=== PATIENT | female | born 1990 | race Caucasian/White ===

== ENCOUNTER 2016-12-31 15:15 | Emergency (ER) | payer MEDICAID ==
[2016-12-31] MEDS ORDERED: IBUPROFEN 800 MG TABLET PO ONE (16:04)
--- NOTE | 2016-12-31 16:08 | ER Document Report ---
ED Medical Screen (RME) - General Stated Complaint: FEVER/BODY PAIN Time seen by provider: 16:03 Mode of Arrival: Ambulatory Information source: Patient Notes: 26-year-old female c/o severe myalgias fever to 103, started with head congestion 2 days ago. lungs are clear at triage and vital signs are stable. No dysuria, frequency or urgency. TRAVEL OUTSIDE OF THE [place] IN LAST 30 DAYS: No - Related Data Allergies/Adverse Reactions: No Known Allergies Allergy (Verified 12/31/16 16:03) Past Medical History - Past Medical History Cardiac Medical History: Denies: Hx Heart Attack, Hx Hypertension Pulmonary Medical History: Reports: Hx Pneumonia Denies: Hx Asthma Neurological Medical History: Reports: Hx Migraine. Denies: Hx Cerebrovascular Accident, Hx Seizures Renal/ Medical History: Reports: Hx Ovarian Cysts GI Medical History: Reports: Hx Gastroesophageal Reflux Disease. Denies: Hx Hepatitis, Hx Hiatal Hernia, Hx Ulcer Psychiatric Medical History: Reports: Hx Anxiety Infectious Medical History: Denies: Hx Hepatitis Past Surgical History: Reports: Hx Tubal Ligation. Denies: Hx Mastectomy, Hx Open Heart Surgery, Hx Pacemaker - Immunizations Immunizations up to date: No Hx Diphtheria, Pertussis, Tetanus Vaccination: Yes
--- NOTE | 2016-12-31 17:49 | ER Document Report ---
HPI - HPI Patient complains to provider of: head congestion,cough Onset: Yesterday Onset/Duration: Gradual Quality of pain: Achy Pain Level: 3 Context: 26 yo smoker female c/o head congestion and cough since yesterday. Hurts when she coughs. No fever. Associated Symptoms: None Exacerbated by: Denies Relieved by: Denies Similar symptoms previously: Yes Recently seen / treated by doctor: No - ROS ROS below otherwise negative: Yes Systems Reviewed and Negative: Yes All other systems reviewed and negative - REPRODUCTIVE LMP: 12/17/16 Reproductive: DENIES: : - DERM Skin Color: Normal Past Medical History - General Information source: Patient - Social History Smoking Status: Current Every Day Smoker Chew tobacco use (# tins/day): No Frequency of alcohol use: Occasional Drug Abuse: None Family History: Reviewed & Not Pertinent Patient has suicidal ideation: No Patient has homicidal ideation: No Pulmonary Medical History: Reports: Hx Pneumonia Neurological Medical History: Reports: Hx Migraine Renal/ Medical History: Reports: Hx Ovarian Cysts GI Medical History: Reports: Hx Gastroesophageal Reflux Disease Psychiatric Medical History: Reports: Hx Anxiety Surgical Hx: Negative Past Surgical History: Reports: Hx Tubal Ligation. Denies: Hx Mastectomy, Hx Open Heart Surgery, Hx Pacemaker - Immunizations Immunizations up to date: No Hx Diphtheria, Pertussis, Tetanus Vaccination: Yes Hx Pneumococcal Vaccination: 11/23/00 Vertical Provider Document - CONSTITUTIONAL Agree With Documented VS: Yes Exam Limitations: No Limitations General Appearance: No Apparent Distress - INFECTION CONTROL TRAVEL OUTSIDE OF THE [place] IN LAST 30 DAYS: No - HEENT HEENT: Normocephalic, Pharyngeal Erythema. negative: Conjuctival Injection, Tympanic Membrane Red, Tympanic Membrane Bulging - NECK Neck: Supple. negative: Lymphadenopathy-Left, Lymphadenopathy-Right - RESPIRATORY Respiratory: Breath Sounds Normal, No Respiratory Distress O2 Sat by Pulse Oximetry: 98 - CARDIOVASCULAR Cardiovascular: Regular Rate, Regular Rhythm - GI/ABDOMEN Gastrointestinal: Abdomen Soft, Abdomen Non-Tender - MUSCULOSKELETAL/EXTREMETIES Musculoskeletal/Extremeties: GALINA RAY - NEURO Level of Consciousness: Awake, Alert - DERM Integumentary: Warm, Dry Course - Re-evaluation Re-evalutation: 12/31/16 17:55 Influenza is negative and patient does not want a chest x-ray. - Vital Signs Vital signs: Temp Pulse Resp BP Pulse Ox 98.8 F 100 16 109/70 98 12/31/16 16:02 12/31/16 16:02 12/31/16 16:02 12/31/16 16:02 12/31/16 16:02 Discharge - Discharge Clinical Impression: Upper respiratory infection Qualifiers: URI type: unspecified viral URI Qualified Code(s): J06.9 - Acute upper respiratory infection, unspecified Condition: Good Disposition: HOME, SELF-CARE Instructions: Acetaminophen, Fever ([facility]), Upper Respiratory Illness ([facility]), Anti -Inflammatory Medication ([facility]) Additional Instructions: plenty of fluids rest to er if worse Prescriptions: Ibuprofen [Motrin 600 mg Tablet] 600 mg PO Q8HP PRN #30 tablet PRN Reason: Referrals: MAUDE BOYCE MD [Primary Care Provider] - Follow up as needed
[2016-12-31 18:24] VITALS: BP 110/78
== END 2016-12-31 18:17 | disposition home or self-care (01) ==
LOC: ER 15:15
DX: J06.9 Acute upper respiratory infection, unspecified (principal); B97.89 Other viral agents as the cause of diseases classified elsewhere; R05 Cough; F17.200 Nicotine dependence, unspecified, uncomplicated; Z87.01 Personal history of pneumonia (recurrent)
CPT/HCPCS: 99283; 87804; J3490

== ENCOUNTER 2017-04-04 17:26 | Emergency (ER) | payer MEDICAID, OTHER ==
[2017-04-04 17:39] VITALS: BP 113/65
--- NOTE | 2017-04-04 20:33 | ER Document Report ---
ED General - General Chief Complaint: Chest Pain Stated Complaint: CHEST PAIN Time Seen by Provider: 04/04/17 18:45 Mode of Arrival: Ambulatory Information source: Patient Notes: 27-year-old female presents with complaints of intermittent sharp chest pain that lasts about 5-10 minutes associated with tingling in her fingers and of her lips. Patient denies any shortness of breath, denies any chest pain otherwise. Patient denies any DVT or PE risk factors TRAVEL OUTSIDE OF THE [place] IN LAST 30 DAYS: No - HPI Onset: Just prior to arrival Onset/Duration: Sudden Quality of pain: Sharp Severity: Mild Pain Level: 1 Associated symptoms: Chest pain Exacerbated by: Denies Relieved by: Denies Similar symptoms previously: No Recently seen / treated by doctor: No - Related Data Allergies/Adverse Reactions: No Known Allergies Allergy (Verified 04/04/17 17:36) Past Medical History - Social History Smoking Status: Current Every Day Smoker Cigarette use (# per day): Yes Chew tobacco use (# tins/day): No Smoking Education Provided: No Frequency of alcohol use: Occasional Drug Abuse: None Family History: Reviewed & Not Pertinent Patient has suicidal ideation: No Patient has homicidal ideation: No - Past Medical History Cardiac Medical History: Denies: Hx Heart Attack, Hx Hypertension Pulmonary Medical History: Reports: Hx Pneumonia Denies: Hx Asthma Neurological Medical History: Reports: Hx Migraine. Denies: Hx Cerebrovascular Accident, Hx Seizures Renal/ Medical History: Reports: Hx Ovarian Cysts. Denies: Hx Peritoneal Dialysis GI Medical History: Reports: Hx Gastroesophageal Reflux Disease. Denies: Hx Hepatitis, Hx Hiatal Hernia, Hx Ulcer Psychiatric Medical History: Reports: Hx Anxiety Infectious Medical History: Denies: Hx Hepatitis Past Surgical History: Reports: Hx Tubal Ligation. Denies: Hx Mastectomy, Hx Open Heart Surgery, Hx Pacemaker - Immunizations Immunizations up to date: No Hx Diphtheria, Pertussis, Tetanus Vaccination: Yes Hx Pneumococcal Vaccination: 11/23/00 Review of Systems - Review of Systems Notes: PHYSICAL EXAMINATION: GENERAL: Well-appearing, well-nourished and in no acute distress. HEAD: Atraumatic, normocephalic. EYES: Pupils equal round and reactive to light, extraocular movements intact, conjunctiva are normal. ENT: Nares patent, oropharynx clear without exudates. Moist mucous membranes. NECK: Normal range of motion, supple without lymphadenopathy LUNGS: Breath sounds clear to auscultation bilaterally and equal. No wheezes rales or rhonchi. HEART: Regular rate and rhythm without murmurs ABDOMEN: Soft, nontender, nondistended abdomen. No guarding, no rebound. No masses appreciated. Female : deferred Musculoskeletal: Normal range of motion, no pitting or edema. No cyanosis. NEUROLOGICAL: Cranial nerves grossly intact. Normal speech, normal gait. Normal sensory, motor exams PSYCH: Normal mood, normal affect. SKIN: Warm, Dry, normal turgor, no rashes or lesions noted. Physical Exam - Vital signs Vitals: Temp Pulse Resp BP Pulse Ox 97.9 F 97 16 113/65 99 04/04/17 17:37 04/04/17 17:37 04/04/17 17:37 04/04/17 17:37 04/04/17 17:37 Course - Re-evaluation Re-evalutation: 04/04/17 20:34 Patient instructed on risks and benefits of medications prescribed. Denies any concerns regarding such. Vital signs are stable Patient's presentation is consistent with a panic attack with tingling sensations in the sharp chest pain. Patient denies any DVT or PE risk factors. Therefore I believe she is stable for discharge. EKG chest x-ray were negative. After performing a Medical Screening Examination, I estimate there is LOW risk for RUPTURED ESOPHAGUS, PNEUMOTHORAX, PULMONARY EMBOLISM, ACUTE CORONARY SYNDROME, OR THORACIC AORTIC DISSECTION, thus I consider the discharge disposition reasonable. I have reevaluated this patient multiple times and no significant life threatening changes are noted. The patient and I have discussed the diagnosis and risks, and we agree with discharging home with close follow-up. We also discussed returning to the Emergency Department immediately if new or worsening symptoms occur. We have discussed the symptoms which are most concerning (e.g., bloody sputum, worsening pain or shortness of breath) that necessitate immediate return. 04/04/17 20:36 - Vital Signs Vital signs: Temp Pulse Resp BP Pulse Ox 97.9 F 97 16 113/65 99 04/04/17 17:37 04/04/17 17:37 04/04/17 17:37 04/04/17 17:37 04/04/17 17:37 Discharge - Discharge Clinical Impression: Anxiety Chest pain Qualifiers: Chest pain type: unspecified Qualified Code(s): R07.9 - Chest pain, unspecified Condition: Stable Disposition: HOME, SELF-CARE Instructions: Chest Pain of Unclear Cause ([facility]), Anxiety ([facility]) Prescriptions: Lorazepam [Ativan 0.5 mg Tablet] 0.5 mg PO Q4 PRN #10 tab PRN Reason: Referrals: OCTAVIA SILVA MD [NO LOCAL MD] - Follow up tomorrow
--- NOTE | 2017-04-05 11:46 | EKG REPORT ---
SEVERITY:- NORMAL ECG - SINUS RHYTHM : Confirmed by: David Pearce 05-Apr-2017 11:44:12
== END 2017-04-04 20:35 | disposition home or self-care (01) ==
LOC: ER 17:26
DX: F41.9 Anxiety disorder, unspecified (principal); R07.9 Chest pain, unspecified; R22.0 Localized swelling, mass and lump, head; F17.210 Nicotine dependence, cigarettes, uncomplicated
CPT/HCPCS: 71020; 93005; 93010; 99285

== ENCOUNTER 2017-05-22 22:26 | Emergency (ER) | payer MEDICAID, OTHER ==
[2017-05-23 00:08] LABS: ABSOLUTE BASOPHILS # (AUTO) 0.1 10^3/uL (0.0-0.2); ABSOLUTE EOSINOPHILS # (AUTO) 0.2 10^3/uL (0.0-0.6); ABSOLUTE LYMPHOCYTES (AUTO) 3.1 10^3/uL (0.5-4.7); ABSOLUTE NEUT (AUTO) 5.6 10^3/uL (1.7-8.2); BASOPHILS % (AUTO) 1.1 % (0-2); EOSINOPHILS % (AUTO) 2.5 % (0-6); HEMATOCRIT 39.4 % (36.0-47.0); HEMOGLOBIN 13.2 g/dL (12.0-15.5); HGB HCT DIFFERENCE 0.2; LYMPHOCYTES % (AUTO) 30.8 % (13-45); MEAN CORPUSCULAR HEMOGLOBIN 28.4 pg (27.0-33.4); MEAN CORPUSCULAR HGB CONC 33.4 g/dL (32.0-36.0); MEAN CORPUSCULAR VOLUME 85 fl (80-97); MONOCYTES % (AUTO) 9.9 % (3-13); RED BLOOD COUNT 4.63 10^6/uL (3.72-5.28); RED CELL DISTRIBUTION WIDTH 12.7 % (11.5-14.0); SEGMENTED NEUTROPHILS % (AUTO) 55.7 % (42-78)
[2017-05-23] MEDS ORDERED: MORPHINE SULFATE 10 MG/ML INJ IV ONE ×3 (02:15→10:12)
[2017-05-23] MEDS ORDERED: ONDANSETRON HCL INJ/PF 4 MG/2 ML SDV IV ONE ×2 (02:15→10:12)
--- NOTE | 2017-05-23 02:17 | ER Document Report ---
ED GI/ - General Chief Complaint: Vaginal Bleeding Stated Complaint: VAGINAL PAIN Time Seen by Provider: 05/23/17 02:02 Notes: Patient is a 27-year-old female who comes emergency department for chief complaint of lower abdominal pain worse on the left side and vaginal bleeding with at first spotting and then passing of clots starting just before arrival tonight. Patient came by EMS. She states that she had a partial hysterectomy on 05/07/17 at [facility] by Dr. Kathleen Garcia, she states that her symptoms had actually completely resolved before today. She denies fever or chills, nausea or vomiting, dizziness. She denies any current daily medications. TRAVEL OUTSIDE OF THE [place] IN LAST 30 DAYS: No - Related Data Allergies/Adverse Reactions: No Known Allergies Allergy (Verified 04/04/17 17:36) Past Medical History - General Information source: Patient - Social History Smoking Status: Never Smoker Drug Abuse: None Lives with: Family Family History: Reviewed & Not Pertinent Patient has suicidal ideation: No Patient has homicidal ideation: No - Past Medical History Cardiac Medical History: Denies: Hx Heart Attack, Hx Hypertension Pulmonary Medical History: Reports: Hx Pneumonia Denies: Hx Asthma Neurological Medical History: Reports: Hx Migraine. Denies: Hx Cerebrovascular Accident, Hx Seizures Renal/ Medical History: Reports: Hx Ovarian Cysts. Denies: Hx Peritoneal Dialysis GI Medical History: Reports: Hx Gastroesophageal Reflux Disease. Denies: Hx Hepatitis, Hx Hiatal Hernia, Hx Ulcer Psychiatric Medical History: Reports: Hx Anxiety Infectious Medical History: Denies: Hx Hepatitis Past Surgical History: Reports: Hx Hysterectomy, Hx Tubal Ligation. Denies: Hx Mastectomy, Hx Open Heart Surgery, Hx Pacemaker - Immunizations Immunizations up to date: No Hx Diphtheria, Pertussis, Tetanus Vaccination: Yes Hx Pneumococcal Vaccination: 11/23/00 Review of Systems - Review of Systems Constitutional: No symptoms reported EENT: No symptoms reported Cardiovascular: No symptoms reported Respiratory: No symptoms reported Gastrointestinal: No symptoms reported Genitourinary: No symptoms reported Female Genitourinary: See HPI Musculoskeletal: No symptoms reported Skin: No symptoms reported Hematologic/Lymphatic: No symptoms reported Neurological/Psychological: No symptoms reported Physical Exam - Vital signs Vitals: Temp Pulse BP Pulse Ox 97.8 F 78 106/76 97 05/22/17 23:08 05/22/17 23:08 05/22/17 23:08 05/22/17 23:08 Interpretation: Normal - General General appearance: Alert, Anxious In distress: None - HEENT Head: Normocephalic, Atraumatic Eyes: Normal Conjunctiva: Normal Extraocular movements intact: Yes Eyelashes: Normal Pupils: PERRL Mouth/Lips: Normal Mucous membranes: Normal Pharynx: Normal Neck: Normal - Respiratory Respiratory status: No respiratory distress Chest status: Nontender Breath sounds: Normal Chest palpation: Normal - Cardiovascular Rhythm: Regular Heart sounds: Normal auscultation Murmur: No - Abdominal Inspection: Healed incision - Several healed incisions over the abdomen, good healing noted, no erythema, tenderness, or evidence of infection Distension: No distension Bowel sounds: Normal Tenderness: Tender - Generalized lower abdominal tenderness which is mild Organomegaly: No organomegaly - Genitourinary Vaginal bleeding: Mild - Minimal vaginal bleeding noted currently, some clots noted vaginally, there is a moderate amount of blood in patient's diaper with clots in the diaper as well. This was examined with Sally RENTERIA at bedside, straight catheter performed and shows no blood, no speculum was used to perform the examination - Back Back: Normal, Nontender - Extremities General upper extremity: Normal inspection, Nontender, Normal color, Normal ROM , Normal temperature General lower extremity: Normal inspection, Nontender, Normal color, Normal ROM , Normal temperature, Normal weight bearing. No: Jennifer's sign - Neurological Neuro grossly intact: Yes Cognition: Normal Orientation: AAOx4 [place] Coma Scale Eye Opening: Spontaneous [place] Coma Scale Verbal: Oriented [place] Coma Scale Motor: Obeys Commands [place] Coma Scale Total: 15 Speech: Normal Motor strength normal: LUE, RUE, LLE, RLE Sensory: Normal - Psychological Associated symptoms: Normal affect, Normal mood - Skin Skin Temperature: Warm Skin Moisture: Dry Skin Color: Normal Course - Re-evaluation Re-evalutation: Patient with some lower abdominal tenderness, evidence of significant vaginal bleeding on examination, straight catheter shows no bladder hemorrhage, CBC shows no anemia. No fever, leukocytosis, or tachycardia. Discussed with Dr. Nichols. CAT scan will be performed. Scan showing possible abnormality of the cuff but no other abnormalities noted. 05/23/17 05:30 Spoke with AVIVA Xie, she recommends patient be transferred to the [facility] ED for evaluation/repair of the cuff by OBGYN. Patient is in full agreement with this. 05/23/17 07:15 Patient was introduced to Marimar Gallego PA-C at bedside, she was given additional pain medications. Vital signs unremarkable at this time. Still awaiting transport. - Vital Signs Vital signs: Temp Pulse Resp BP Pulse Ox 97.7 F 56 L 15 103/52 L 99 05/23/17 06:42 05/23/17 06:42 05/23/17 06:42 05/23/17 06:42 05/23/17 06:42 - Laboratory Result Diagrams: 05/22/17 23:52 05/22/17 23:52 Laboratory results interpreted by me: 05/22/17 05/23/17 23:52 03:32 Carbon Dioxide 21 L Urine Protein 30 H Urine Ketones 20 H Discharge - Discharge Clinical Impression: Postoperative vaginal bleeding Condition: Stable Disposition: [facility]
[2017-05-23 03:49] LABS: APPEARANCE,URINE SLIGHTLY-CLOUDY; BILIRUBIN,URINE NEGATIVE (NEGATIVE); GLUCOSE, URINE NEGATIVE (NEGATIVE); KETONES,URINE 20 mg/dL (NEGATIVE); LEUKOCYTE ESTERASE,URINE NEGATIVE (NEGATIVE); NITRITE,URINE NEGATIVE (NEGATIVE); PROTEIN,URINE 30 mg/dL (NEGATIVE); URINE SPECIFIC GRAVITY 1.025; UROBILINOGEN,URINE NEGATIVE mg/dL (<2.0)
[2017-05-23 03:50] LABS: ALANINE AMINOTRANSFERASE 25 U/L (9-52); ALBUMIN 4.1 g/dL (3.5-5.0); ALKALINE PHOSPHATASE 67 U/L (38-126); ANION GAP 14 (5-19); ASPARTATE AMINO TRANSFERASE 15 U/L (14-36); BILIRUBIN,DIRECT 0.3 mg/dL (0.0-0.4); BILIRUBIN,TOTAL 0.3 mg/dL (0.2-1.3); BLOOD UREA NITROGEN 9 mg/dL (7-20); CALCIUM 9.6 mg/dL (8.4-10.2); CARBON DIOXIDE 21 mmol/L (22-30); CHLORIDE 107 mmol/L (98-107); CREATININE RESULT 0.69 mg/dL (0.52-1.25); GLUCOSE 85 mg/dL (75-110); POTASSIUM 3.9 mmol/L (3.6-5.0); SODIUM 141.5 mmol/L (137-145); TOTAL PROTEIN 7.4 g/dL (6.3-8.2)
--- NOTE | 2017-05-23 04:28 | RADIOLOGY REPORT (SQ) ---
EXAM DESCRIPTION: CT ABD/PELVIS WITH IV ONLY COMPLETED DATE/TIME: 05/23/2017 3:56 am REASON FOR STUDY: post op abd/pelvic pain, vaginal bleeding COMPARISON: None. TECHNIQUE: CT scan of the abdomen and pelvis performed using helical scanning technique with dynamic intravenous contrast injection. No oral contrast. Images reviewed with lung, soft tissue, and bone windows. Reconstructed coronal and sagittal MPR images reviewed. Delayed images for evaluation of the urinary system also acquired. All images stored on PACS. All CT scanners at this facility use dose modulation, iterative reconstruction, and/or weight based d osing when appropriate to reduce radiation dose to as low as reasonably achievable (ALARA). [facility]: Dose Right [facility]: CareDose [facility]: Dose Right [facility]: Teradose 4D [facility]: [employer] CONTRAST TYPE AND DOSE: contrast/concentration: Isovue 370.00 mg/ml; Total Contrast Delivered: 66.0 ml; Total Saline Delivered: 66.0 ml RENAL FUNCTION: None required. The patient is less than 50 years old. RADIATION DOSE: Up-to-date CT equipment and radiation dose reduction techniques were employed. CTDIv ol: 6.3 - 8.6 mGy. DLP: 713 mGy-cm.. LIMITATIONS: None. FINDINGS: LOWER CHEST: No significant findings. No nodules or infiltrates. LIVER: Normal size. No masses. No dilated ducts. 0.4 cm likely benign hepatic cysts not definitivel y characterized. SPLEEN: Normal size. No focal lesions. PANCREAS: No masses. No significant calcifications. No adjacent inflammation or peripancreatic fluid collections. Pancreatic duct not dilated. GALLBLADDER: No identified stones by CT criteria. No inflammatory changes to suggest cholecystitis. ADRENAL GLANDS: No significant masses or asymmetry. RIGHT KIDNEY AND URETER: No solid masses. No significant calcifications. No hydronephrosis or hyd roureter. LEFT KIDNEY AND URETER: No solid masses. No significant calcifications. No hydronephrosis or hydr oureter. AORTA AND VESSELS: No aneurysm. No dissection. Renal arteries, SMA, celiac without stenosis. RETROPERITONEUM: No retroperitoneal adenopathy, hemorrhage or masses. BOWEL AND PERITONEAL CAVITY: No masses or inflammatory changes. No free fluid or peritoneal masses. APPENDIX: Normal. PELVIS: No mass or free fluid. Normal bladder. Small fluid -emphysema at the expected vaginal cuff m easures 6.5 x 4.2 cm, or imaged 66 of series 3 consistent with recent hysterectomy. ABDOMINAL WALL: No masses. No hernias. BONES: No significant or acute findings. OTHER: No other significant finding. IMPRESSION: Inflammatory appearance of the vaginal cuff measuring up to 6.5 cm in diameter sac consi stent with recent surgery ; differential diagnosis includes infectious phlegmon. TECHNICAL DOCUMENTATION: JOB ID: [id number] Quality ID # [id number]: Final reports with documentation of one or more dose reduction techniques (e.g., Au tomated exposure control, adjustment of the mA and/or kV according to patient size, use of iterative reconstruction technique) 2010 [employer] All Rights Reserved
[2017-05-23 10:12] VITALS: BP 103/54
== END 2017-05-23 10:30 | disposition short-term general hospital (02) ==
LOC: ER 22:26
DX: N99.820 Postprocedural hemorrhage of a genitourinary system organ or structure following a genitourinary system procedure (principal); Y83.6 Removal of other organ (partial) (total) as the cause of abnormal reaction of the patient, or of later complication, without mention of misadventure at the time of the procedure; Z90.711 Acquired absence of uterus with remaining cervical stump; R10.30 Lower abdominal pain, unspecified
CPT/HCPCS: 96376; 99285; 51701; 96374; 96375; 36415; 85025; 80053; 81001; 74177; J2270; J2405

== ENCOUNTER 2017-06-19 04:15 | Inpatient (IN) | payer MEDICAID ==
[2017-06-19] MEDS ORDERED: NORMAL SALINE 1000 ML 1,000 ML IV ONE ×2 (04:33→07:38)
[2017-06-19 05:07] LABS: ABSOLUTE LYMPHOCYTES (AUTO) 1.4 10^3/uL (0.5-4.7); ABSOLUTE MONOCYTES (AUTO) 0.3 10^3/uL (0.1-1.4); ABSOLUTE NEUT (AUTO) 15.6 10^3/uL (1.7-8.2); BASOPHILS % (AUTO) 0.2 % (0-2); EOSINOPHILS % (AUTO) 0.2 % (0-6); HEMATOCRIT 42.7 % (36.0-47.0); HEMOGLOBIN 14.3 g/dL (12.0-15.5); HGB HCT DIFFERENCE 0.2; LYMPHOCYTES % (AUTO) 8.1 % (13-45); MEAN CORPUSCULAR HEMOGLOBIN 28.9 pg (27.0-33.4); MEAN CORPUSCULAR HGB CONC 33.5 g/dL (32.0-36.0); MEAN CORPUSCULAR VOLUME 86 fl (80-97); MONOCYTES % (AUTO) 1.8 % (3-13); RED BLOOD COUNT 4.95 10^6/uL (3.72-5.28); SEGMENTED NEUTROPHILS % (AUTO) 89.7 % (42-78); WHITE BLOOD COUNT 17.4 10^3/uL (4.0-10.5)
--- NOTE | 2017-06-19 05:17 | ER Document Report ---
ED GI/ - General Mode of Arrival: Ambulatory Information source: Patient TRAVEL OUTSIDE OF THE [place] IN LAST 30 DAYS: No - HPI Patient complains to provider of: Abdominal pain, Vomiting - 1 but has been nauseated since she woke up at 350 Onset: This morning - About 350 this morning Timing/Duration: Sudden Quality of pain: Pressure, Sharp Severity at maximum: Moderate Severity in ED: Moderate Pain Level: 3 Location: Other - States she started that with pressure in her rectum area and it is slowly moving up her abdomen. States she also has pain in her low back Vaginal bleeding (Compared to normal period): Spotting - States she has been spotting since she went to [place] at the beginning of the month LMP: Partial hysterectomy May 07 Associated symptoms: Nausea, Other - Abdominal and low back pain started at 350. denies: Vomiting Exacerbated by: Denies Relieved by: Denies Similar symptoms previously: Yes Recently seen / treated by doctor: Yes <ALEX CANTU - Last Filed: 06/19/17 07:41> <MAGNUS REDMAN - Last Filed: 06/19/17 12:20> - General Chief Complaint: Post Surgical Pain Stated Complaint: ABDOMINAL PAIN Time Seen by Provider: 06/19/17 04:56 Notes: 7-year-old female presents to ED for abdominal pain starting at about 350 this morning. She states she had a partial hysterectomy on May 07 and then at the beginning of the month she had some increased pain and bleeding and went back down to 110 and they put some medicine and her vagina to stop the bleeding. She states she has been bleeding spotting since then. But tonight she woke up from her sleep with pain shaking and chills. She states she has not increased the bleeding at all. (ALEX CANTU) - Related Data Allergies/Adverse Reactions: No Known Allergies Allergy (Verified 04/04/17 17:36) Past Medical History - General Information source: Patient - Social History Smoking Status: Never Smoker Cigarette use (# per day): No Chew tobacco use (# tins/day): No Smoking Education Provided: No Frequency of alcohol use: None Drug Abuse: None Lives with: Family Family History: Reviewed & Not Pertinent Patient has suicidal ideation: No Patient has homicidal ideation: No - Past Medical History Cardiac Medical History: Reports: None Pulmonary Medical History: Reports: Hx Pneumonia EENT Medical History: Reports: None Neurological Medical History: Reports: Hx Migraine Endocrine Medical History: Reports: None Renal/ Medical History: Reports: Hx Ovarian Cysts Malignancy Medical History: Reports: None GI Medical History: Reports: Hx Gastroesophageal Reflux Disease Musculoskeltal Medical History: Reports None Skin Medical History: Reports None Psychiatric Medical History: Reports: Hx Anxiety Traumatic Medical History: Reports: None Infectious Medical History: Reports: None Past Surgical History: Reports: Hx Hysterectomy, Hx Tubal Ligation - Immunizations Immunizations up to date: No Hx Diphtheria, Pertussis, Tetanus Vaccination: Yes Hx Pneumococcal Vaccination: 11/23/00 <ALEX CANTU - Last Filed: 06/19/17 07:41> Review of Systems - Review of Systems Constitutional: No symptoms reported EENT: No symptoms reported Cardiovascular: No symptoms reported Respiratory: No symptoms reported Gastrointestinal: Abdominal pain, Nausea, Vomiting - x1 Genitourinary: No symptoms reported Female Genitourinary: No symptoms reported Musculoskeletal: No symptoms reported Skin: No symptoms reported Hematologic/Lymphatic: No symptoms reported Neurological/Psychological: No symptoms reported -: Yes All other systems reviewed and negative <ALEX CANTU - Last Filed: 06/19/17 07:41> Physical Exam - Vital signs Interpretation: Normal - General General appearance: Appears well, Alert - HEENT Head: Normocephalic, Atraumatic Eyes: Normal Pupils: PERRL - Respiratory Respiratory status: No respiratory distress Chest status: Nontender Breath sounds: Normal Chest palpation: Normal - Cardiovascular Rhythm: Regular Heart sounds: Normal auscultation Murmur: No - Abdominal Inspection: Normal Distension: No distension Bowel sounds: Normal Tenderness: Tender Organomegaly: No organomegaly - Back Back: Normal, Tender. No: Deformity/step-off, Vertebra tenderness, Scars, Scoliosis, Wounds - Extremities General upper extremity: Normal inspection, Nontender, Normal color, Normal ROM , Normal temperature General lower extremity: Normal inspection, Nontender, Normal color, Normal ROM , Normal temperature, Normal weight bearing. No: Jennifer's sign - Neurological Neuro grossly intact: Yes Cognition: Normal Orientation: AAOx4 [place] Coma Scale Eye Opening: Spontaneous [place] Coma Scale Verbal: Oriented [place] Coma Scale Motor: Obeys Commands [place] Coma Scale Total: 15 Speech: Normal Motor strength normal: LUE, RUE, LLE, RLE Sensory: Normal - Psychological Associated symptoms: Normal affect, Normal mood - Skin Skin Temperature: Warm Skin Moisture: Dry Skin Color: Normal <ALEX CANTU - Last Filed: 06/19/17 07:41> Course - Laboratory Result Diagrams: 06/19/17 04:47 06/19/17 06:01 <ALEX CANTU - Last Filed: 06/19/17 07:41> - Laboratory Result Diagrams: 06/19/17 04:47 06/19/17 06:01 <MAGNUS REDMAN - Last Filed: 06/19/17 12:20> - Re-evaluation Re-evalutation: 06/19/17 07:41 Report given to Michelle redman [employer] (ALEX CANTU) 06/19/17 07:43 now tender RLQ, rectal non tender, no stool. consult dr tapia, get TV US to check the ovaries. then get IV and oral contrasted CT abd and pelvis. Pt had hysterectomy and caitlin salpingectomy on May 07. Cuff bleeding May 23, and has seen her twist tester in [place] since and the mild spotting now is OK with them. Had bm while in ER, soft. 06/19/17 10:22 pelvic ultrasound is negative per radiologist, pending the CT scan now. 06/19/17 11:33 dr. stearns called and will see the pt in room 3 to evaluate the cuff, if the cuff is in tact then general surgery will have to be involved. 06/19/17 12:19 pt is going to surgery;, admitted by denzel choi to 2nd floor. pt understands but is worried. dx vaginal cuff deheisience. Pt is a smoker and had intercourse yesterday. (MAGNUS REDMAN) - Vital Signs Vital signs: Temp Pulse Resp BP Pulse Ox 98.3 F 94 12 99/64 L 97 06/19/17 08:00 06/19/17 10:56 06/19/17 10:56 06/19/17 10:56 06/19/17 10:56 - Laboratory Laboratory results interpreted by me: 06/19/17 06/19/17 06/19/17 04:47 06:01 08:30 WBC 17.4 H Seg Neutrophils % 89.7 H Lymphocytes % 8.1 L Monocytes % 1.8 L Absolute Neutrophils 15.6 H Chloride 112 H Carbon Dioxide 20 L BUN 6 L Urine Ketones TRACE H Urine Blood LARGE H Ur Leukocyte Esterase TRACE H Discharge <ALEX CANTU - Last Filed: 06/19/17 07:41> - Discharge Admitting Provider: dr. setarns Unit Admitted: Post <MAGNUS REDMAN - Last Filed: 06/19/17 12:20> - Discharge Clinical Impression: Vaginal cuff dehiscence Qualifiers: Encounter type: initial encounter Qualified Code(s): T81.31XA - Disruption of external operation (surgical) wound, not elsewhere classified, initial encounter Condition: Stable Disposition: ADMITTED INPATIENT
[2017-06-19] MEDS ORDERED: ONDANSETRON HCL INJ/PF 4 MG/2 ML SDV IV ONE (05:38)
[2017-06-19] MEDS ORDERED: MORPHINE SULFATE 10 MG/ML INJ IV ONE ×3 (05:41→13:31)
[2017-06-19 06:29] LABS: ALANINE AMINOTRANSFERASE 28 U/L (9-52); ALBUMIN 3.8 g/dL (3.5-5.0); ALKALINE PHOSPHATASE 59 U/L (38-126); ANION GAP 12 (5-19); ASPARTATE AMINO TRANSFERASE 14 U/L (14-36); BILIRUBIN,DIRECT 0.2 mg/dL (0.0-0.4); BILIRUBIN,TOTAL 0.6 mg/dL (0.2-1.3); BLOOD UREA NITROGEN 6 mg/dL (7-20); CALCIUM 8.4 mg/dL (8.4-10.2); CARBON DIOXIDE 20 mmol/L (22-30); CHLORIDE 112 mmol/L (98-107); CREATININE RESULT 0.59 mg/dL (0.52-1.25); GLUCOSE 100 mg/dL (75-110); LIPASE 62.3 U/L (23-300); POTASSIUM 3.8 mmol/L (3.6-5.0); SODIUM 143.9 mmol/L (137-145); TOTAL PROTEIN 6.9 g/dL (6.3-8.2)
--- NOTE | 2017-06-19 07:12 | RADIOLOGY REPORT (SQ) ---
EXAM DESCRIPTION: U/S ABDOMEN COMPLETE W/O DOP COMPLETED DATE/TIME: 06/19/2017 6:53 am REASON FOR STUDY: sudden general abdominal pain with recent hysterec COMPARISON: 08/17/2013. TECHNIQUE: Dynamic and static grayscale images acquired of the abdomen and recorded on PACS. Additio nal selected color Doppler and spectral images recorded. LIMITATIONS: None. FINDINGS: PANCREAS: No masses. Visualized pancreatic duct normal caliber. LIVER: No masses. Echotexture normal. LIVER VASCULATURE: Normal directional flow of the main portal vein and hepatic veins. GALLBLADDER: 0.8 cm likely gallstone at the gallbladder neck. ULTRASOUND-DETECTED RAZA'S SIGN: Negative. INTRAHEPATIC DUCTS AND COMMON DUCT: CBD and intrahepatic ducts normal caliber. No filling defects. INFERIOR VENA CAVA: Normal flow. AORTA: No aneurysm. RIGHT KIDNEY: Normal size. Normal echogenicity. No solid or suspicious masses. No hydronephros is. No calcifications. LEFT KIDNEY: Normal size. Normal echogenicity. No solid or suspicious masses. No hydronephrosi s. No calcifications. SPLEEN: Normal size. No solid masses. PERITONEAL AND PLEURAL SPACES: No ascites or effusions. OTHER: No other significant finding. IMPRESSION: No acute findings. Possible 0.8 cm gallstone at the gallbladder neck. TECHNICAL DOCUMENTATION: JOB ID: [id number] [employer] All Rights Reserved
[2017-06-19] MEDS ORDERED: LIDOCAINE 2% INJ-PF (20 MG/ML) 10 ML AMPUL ONE (08:29)
[2017-06-19] MEDS ORDERED: ONDANSETRON HCL INJ/PF 4 MG/2 ML SDV ONE (08:29)
[2017-06-19] MEDS ORDERED: DEXAMETHASONE SOD PHOSPHATE INJ 4 MG/1 ML VIAL ONE (08:29)
[2017-06-19] MEDS ORDERED: SUCCINYLCHOLINE CHLORIDE INJ 200 MG/10 ML VIAL ONE (08:29)
--- NOTE | 2017-06-19 08:44 | RADIOLOGY REPORT (SQ) ---
EXAM DESCRIPTION: U/S NON-OB PELVIS W/O DOP COMPLETED DATE/TIME: 06/19/2017 8:29 am REASON FOR STUDY: right lower quadrant abdominal pain COMPARISON: None. TECHNIQUE: Dynamic and static grayscale images acquired of the pelvis via transabdominal approach an d recorded on PACS. Additional selected color Doppler and spectral images recorded. LIMITATIONS: None. FINDINGS: UTERUS: Surgically absent. RIGHT OVARY: No abnormal masses. RIGHT OVARY DOPPLER: Flow present on color Doppler. LEFT OVARY: No abnormal masses. LEFT OVARY DOPPLER: Flow present on color Doppler. FREE FLUID: None noted. OTHER: No other significant finding. MEASUREMENTS: UTERUS: Not applicable. ENDOMETRIAL STRIPE: Not applicable. RIGHT OVARY: 1.1 x 1.9 x 2.6 cm. LEFT OVARY: 1.4 x 1.8 x 2.5 cm. IMPRESSION: NORMAL PELVIC ULTRASOUND BY TRANSABDOMINAL TECHNIQUE. TECHNICAL DOCUMENTATION: JOB ID: [id number] [employer]- All Rights Reserved
[2017-06-19 08:58] LABS: APPEARANCE,URINE CLEAR; BILIRUBIN,URINE NEGATIVE (NEGATIVE); GLUCOSE, URINE NEGATIVE (NEGATIVE); KETONES,URINE TRACE mg/dL (NEGATIVE); LEUKOCYTE ESTERASE,URINE TRACE (NEGATIVE); NITRITE,URINE NEGATIVE (NEGATIVE); PROTEIN,URINE NEGATIVE (NEGATIVE); URINE SPECIFIC GRAVITY 1.006; UROBILINOGEN,URINE NEGATIVE mg/dL (<2.0)
--- NOTE | 2017-06-19 11:13 | RADIOLOGY REPORT (SQ) ---
EXAM DESCRIPTION: CT ABD/PELVIS WITH IV ORAL COMPLETED DATE/TIME: 06/19/2017 10:50 am REASON FOR STUDY: rlq abdominal pain COMPARISON: 08/27/2014 TECHNIQUE: CT scan of the abdomen and pelvis performed using helical scanning technique with dynamic intravenous contrast injection. Oral contrast. Images reviewed with lung, soft tissue, and bone win dows. Reconstructed coronal and sagittal MPR images reviewed. Delayed images for evaluation of the ur inary system also acquired. All images stored on PACS. All CT scanners at this facility use dose modulation, iterative reconstruction, and/or weight based d osing when appropriate to reduce radiation dose to as low as reasonably achievable (ALARA). [facility]: Dose Right [facility]: CareDose [facility]: Dose Right [facility]: Teradose 4D [facility]: [facility] CONTRAST TYPE AND DOSE: contrast/concentration: Isovue 370.00 mg/ml; Total Contrast Delivered: 69.0 ml; Total Saline Delivered: 65.0 ml RENAL FUNCTION: None required. The patient is less than 50 years old RADIATION DOSE: Up-to-date CT equipment and radiation dose reduction techniques were employed. CTDIv ol: 4.6 - 5.3 mGy. DLP: 478 mGy-cm.. LIMITATIONS: None. FINDINGS: LOWER CHEST: No significant findings. No nodules or infiltrates. LIVER: There is a small amount of air in the carson hepatis and adjacent to the gallbladder and anteri or to the liver. The liver is normal in size. No hepatic lesions are seen. SPLEEN: Normal size. No focal lesions. PANCREAS: No masses. No significant calcifications. No adjacent inflammation or peripancreatic fluid collections. Pancreatic duct not dilated. GALLBLADDER: No identified stones by CT criteria. No inflammatory changes to suggest cholecystitis. ADRENAL GLANDS: No significant masses or asymmetry. RIGHT KIDNEY AND URETER: No solid masses. No significant calcifications. No hydronephrosis or hyd roureter. LEFT KIDNEY AND URETER: No solid masses. No significant calcifications. No hydronephrosis or hydr oureter. AORTA AND VESSELS: No aneurysm. No dissection. Renal arteries, SMA, celiac without stenosis. RETROPERITONEUM: No retroperitoneal adenopathy, hemorrhage or masses. BOWEL AND PERITONEAL CAVITY: No masses or inflammatory changes. A few bubbles of air seen anteriorly in the pelvis on image 64 series 2 there in 63 series 5. APPENDIX: Not identified. PELVIS: The urinary bladder is normal. The uterus is absent by history ABDOMINAL WALL: No masses. No hernias. BONES: No significant or acute findings. OTHER: No other significant finding. IMPRESSION: There is a small amount of free air in the upper abdomen predominantly but a couple smal l bubbles of air seen just above the urinary bladder anteriorly. This suggests bowel perforation. D oes patient have any history of ulcers? Has the patient had any type of procedure recently? TECHNICAL DOCUMENTATION: JOB ID: [id number] Quality ID # [id number]: Final reports with documentation of one or more dose reduction techniques (e.g., Au tomated exposure control, adjustment of the mA and/or kV according to patient size, use of iterative reconstruction technique) 2010 [employer]- All Rights Reserved
[2017-06-19] MEDS ORDERED: ERTAPENEM SODIUM INJ 1 GM VIAL IV ONE (11:32)
[2017-06-19] MEDS ORDERED: FENTANYL CITRATE INJ/PF 100 MCG/2 ML AMPUL ONE (13:15)
[2017-06-19] MEDS ORDERED: HYDROMORPHONE HCL INJ/PF 2 MG/ML AMPULE ONE (13:15)
[2017-06-19] MEDS ORDERED: ACETAMINOPHEN 100 ML IV ONE (13:15)
[2017-06-19] MEDS ORDERED: MIDAZOLAM 2 MG/2 ML INJ ONE (13:16)
[2017-06-19] MEDS ORDERED: PROPOFOL INJ 200 MG/20 ML VIAL IV ONE (13:16)
[2017-06-19] MEDS ORDERED: BUPIVACAINE INJ/PF LIPOSOME/PF 266 MG/20 ML SDV ONE (13:24)
[2017-06-19] MEDS ORDERED: BUPIVACAINE HCL 0.5%-EPI 1:200000 INJ/PF 30 ML VIAL ONE (13:24)
[2017-06-19] MEDS ORDERED: MORPHINE SULFATE 10 MG/ML INJ ONE (13:30)
[2017-06-19] MEDS ORDERED: CEFAZOLIN INJ 1 GM VIAL ONE (15:25)
[2017-06-19] MEDS: FENTANYL CITRATE INJ/PF 100 MCG/2 ML AMPUL ONE ×3 (16:40→16:50)
--- NOTE | 2017-06-19 16:48 | OPERATIVE REPORT E ---
Operative Report NAME: WEI FEBRUARY : 1990 AGE: 27Y DATE OF SURGERY: 06/19/2017 ROOM: ED03 PREOPERATIVE DIAGNOSIS: VAGINAL CUFF DEHISCENCE. POSTOPERATIVE DIAGNOSIS: VAGINAL CUFF DEHISCENCE. OPERATION: Vaginal cuff revision. SURGEON: COLEMAN MURRAY M.D. ANESTHESIA: General endotracheal. TISSUE REMOVED OR ALTERED: None. ESTIMATED BLOOD LOSS: 5 mL. FINDINGS: There was an approximately 3 cm vaginal cuff defect at the external part of the cuff, smaller internally. There was no bowel prolapsing through. DESCRIPTION OF PROCEDURE: After discussing the risks, benefits and alternatives of the procedure and obtaining informed consent, the patient was taken to the OR where general anesthesia was attained. She was positioned in the dorsal lithotomy position, prepped and draped in the usual standard fashion. A Cabrera catheter was placed to keep the bladder drained during the procedure. A weighted speculum was placed and then a Guilherme placed anteriorly. The cuff defect was observed. The tissue was irrigated. The old suture material was removed and the cuff edges grasped with [place]. During this process, the tissue that was exposed on the internal aspect of the cuff was denuded slightly to get good bleeding. The cuff was then closed with 3 [id number] of 0 Monocryl. The sutures were tied down after all of the stitches had been placed to assure that bladder and bowel were not incorporated into the closure. The vagina was irrigated copiously. The sutures were cut long. The patient was taken down out of dorsal lithotomy and awakened from general anesthesia after removing the Cabrera catheter. All sponge, needle, lap, and instrument counts were correct x2. DICTATING PHYSICIAN: COLEMAN MURRAY M.D. [id number] PHY#: [id number] ID: [id number] JOB#: [id number] ACCT: [id number] cc:COLEMAN MURRAY M.D. > MTDD
[2017-06-19] MEDS ORDERED: ONDANSETRON HCL INJ/PF 4 MG/2 ML SDV IV PRN (17:00)
[2017-06-19] MEDS ORDERED: IBUPROFEN 800 MG TABLET PO PRN (17:00)
[2017-06-19] MEDS ORDERED: NICOTINE 21 MG/24 HR PATCH.TD24 TD ONE (18:00)
[2017-06-19] MEDS: BUPROPION HCL 100 MG TABLET PO SCH (22:15)
[2017-06-20] MEDS: BUPROPION HCL 100 MG TABLET PO SCH ×2 (05:57→13:21)
[2017-06-20] MEDS: OXYCODONE HCL IR 5 MG TABLET PO PRN ×2 (08:09→17:56)
--- NOTE | 2017-06-20 08:22 | PDOC PROGRESS REPORT ---
Subjective Subjective:: Pt reports feeling better today, less abdominal pain. No n/v Only vaginal spotting Physical Exam - Physical Exam Vital Signs: Temp Pulse Resp BP Pulse Ox 98.4 F 67 16 102/64 100 06/20/17 08:00 06/20/17 08:00 06/20/17 08:00 06/20/17 08:00 06/20/17 08:00 Intake & Output 06/19/17 06/20/17 06/21/17 06:59 06:59 06:59 Intake Total 1780 Output Total 1130 Balance 650 General appearance: PRESENT: no acute distress, cooperative, obese, well- developed GI/Abdominal exam: PRESENT: normal bowel sounds, soft - nontender abdomen Result Impressions: Abdomen Ultrasound 06/19/17 05:08 IMPRESSION: No acute findings. Possible 0.8 cm gallstone at the gallbladder neck. Pelvis Ultrasound 06/19/17 07:35 IMPRESSION: NORMAL PELVIC ULTRASOUND BY TRANSABDOMINAL TECHNIQUE. Abdomen/Pelvis CT 06/19/17 07:37 IMPRESSION: There is a small amount of free air in the upper abdomen predominantly but a couple small bubbles of air seen just above the urinary bladder anteriorly. This suggests bowel perforation. Does patient have any history of ulcers? Has the patient had any type of procedure recently? Assessment & Plan - Diagnosis (1) Peritonitis Is this a current diagnosis for this admission?: Yes (2) Vaginal cuff dehiscence Qualifiers: Encounter type: initial encounter Qualified Code(s): T81.31XA - Disruption of external operation (surgical) wound, not elsewhere classified, initial encounter Is this a current diagnosis for this admission?: Yes - Time Time Spent with patient: Less than 15 minutes Medications reviewed and adjusted accordingly: Yes Anticipated discharge: Home Within: within 48 hours - Will continue IV Abx Await cbc results
[2017-06-20 08:58] LABS: ABSOLUTE MONOCYTES (AUTO) 1.3 10^3/uL (0.1-1.4); ABSOLUTE NEUT (AUTO) 13.2 10^3/uL (1.7-8.2); BASOPHILS % (AUTO) 0.3 % (0-2); HEMATOCRIT 33.5 % (36.0-47.0); HGB HCT DIFFERENCE 0.4; LYMPHOCYTES % (AUTO) 6.5 % (13-45); MEAN CORPUSCULAR HEMOGLOBIN 29.2 pg (27.0-33.4); MEAN CORPUSCULAR HGB CONC 33.8 g/dL (32.0-36.0); MEAN CORPUSCULAR VOLUME 87 fl (80-97); MONOCYTES % (AUTO) 8.5 % (3-13); RED BLOOD COUNT 3.87 10^6/uL (3.72-5.28); RED CELL DISTRIBUTION WIDTH 13.7 % (11.5-14.0); SEGMENTED NEUTROPHILS % (AUTO) 84.7 % (42-78); WHITE BLOOD COUNT 15.6 10^3/uL (4.0-10.5)
[2017-06-20 09:11] LABS: HEMOGLOBIN 11.3 g/dL (12.0-15.5)
[2017-06-20] MEDS: PRENATAL VITAMIN W-O CA NO5/FE FUMARATE/FA CAPSULE PO SCH (09:53)
[2017-06-20] MEDS: NICOTINE 21 MG/24 HR PATCH.TD24 TD SCH (09:54)
[2017-06-20] MEDS ORDERED: ERTAPENEM SODIUM 1 GM in NORMAL SALINE 50 ML IV SCH (10:00)
[2017-06-21] MEDS: BUPROPION HCL 100 MG TABLET PO SCH ×2 (00:26→05:43)
[2017-06-21] MEDS: OXYCODONE HCL IR 5 MG TABLET PO PRN ×2 (05:45→09:36)
[2017-06-21 07:38] LABS: ABSOLUTE EOSINOPHILS # (AUTO) 0.1 10^3/uL (0.0-0.6); ABSOLUTE LYMPHOCYTES (AUTO) 2.9 10^3/uL (0.5-4.7); ABSOLUTE MONOCYTES (AUTO) 1.4 10^3/uL (0.1-1.4); ABSOLUTE NEUT (AUTO) 5.8 10^3/uL (1.7-8.2); BASOPHILS % (AUTO) 0.5 % (0-2); EOSINOPHILS % (AUTO) 1.1 % (0-6); HEMATOCRIT 31.6 % (36.0-47.0); HEMOGLOBIN 10.7 g/dL (12.0-15.5); HGB HCT DIFFERENCE 0.5; LYMPHOCYTES % (AUTO) 28.8 % (13-45); MEAN CORPUSCULAR HEMOGLOBIN 29.8 pg (27.0-33.4); MEAN CORPUSCULAR HGB CONC 33.8 g/dL (32.0-36.0); MEAN CORPUSCULAR VOLUME 88 fl (80-97); MONOCYTES % (AUTO) 13.3 % (3-13); RED CELL DISTRIBUTION WIDTH 13.8 % (11.5-14.0); SEGMENTED NEUTROPHILS % (AUTO) 56.3 % (42-78); WHITE BLOOD COUNT 10.2 10^3/uL (4.0-10.5)
[2017-06-21] MEDS: NICOTINE 21 MG/24 HR PATCH.TD24 TD SCH (09:08)
[2017-06-21] MEDS: PRENATAL VITAMIN W-O CA NO5/FE FUMARATE/FA CAPSULE PO SCH (09:08)
--- NOTE | 2017-06-21 09:53 | DISCHARGE SUMMARY E ---
Discharge Summary NAME: TRENT CARVAJAL : 1990 AGE: 27Y ADMITTED: 06/19/2017 DISCHARGED: 06/21/2017 INDICATION FOR ADMISSION: Vaginal cuff dehiscence. HOSPITAL COURSE: The patient is a 27-year-old female who was 6 weeks postop from a robotic hysterectomy for recurrent cervical dysplasia. She had had intercourse the night before presentation. In the middle of the night she awoke with pelvic pain and vaginal bleeding. She presented to the emergency room with these symptoms. White count on admission was 17,000 and she had abdominal tenderness. CT scan had been obtained by the emergency room which showed free air in the peritoneal cavity. The oral contrast had been given with this and there was no evidence of appendicitis and no evidence of bowel perforation. On my exam, she had a vaginal cuff dehiscence. She was taken to the operating room and this was repaired. She was placed on Invanz on June 19 and June 20. Her IV infiltrated after her second dose. White count on postop day 1 was 15.6 and on postop day 2 it was down to 10.2. She was only requiring Motrin for pain and was feeling much better. Her bleeding was scant. She was tolerating p.o. and had had return of bowel function. She remained afebrile. Her heart rate had been high on presentation to the emergency room but was in the 50s to 60s by the time of discharge. During the course of her stay, the patient admitted to being a pack a day smoker. She had a 21 mcg nicotine patch placed daily postoperatively and this cut her cravings. She was also started on Wellbutrin SR to help with smoking cessation. The importance of avoidance of intercourse for approximately 8 weeks postop and until cuff healed clinically was extensively emphasized with the patient. We also discussed the need for good nutrition and the need for smoking cessation to aid in wound healing. DISCHARGE DIAGNOSES: 1. VAGINAL CUFF DEHISCENCE. 2. PERITONITIS RESOLVED. 3. TOBACCO ABUSE. PLAN: The patient was given discharge scripts for Levaquin 750 mg 1 p.o. q. day for 7 days, no refills; Motrin 800 one p.o. t.i.d. p.r.n. #30, no refills; Wellbutrin SR 1 p.o. b.i.d. #60, refills x2 and vitamins with DHA 1 p.o. q. day #30, refills x3. She was advised to be on pelvic rest and to follow up with me in a week or sooner should problems arise. DICTATING PHYSICIAN: COLEMAN MURRAY M.D. [id number] PHY#: [id number] ID: [id number] JOB#: [id number] ACCT: [id number] cc:COLEMAN MURRAY M.D. > MTDD
[2017-06-21] MEDS ORDERED: LEVOFLOXACIN 750 MG TABLET PO ONE (10:00)
[2017-06-21 10:33] VITALS: BP 117/76
== END 2017-06-21 10:33 | disposition home or self-care (01) | DRG 907 ==
LOC: ER 04:15 → EH 12:47 → 2N 18:06
PROVIDERS: ADMIT Specialist; ATTEND Specialist
PROC: 0UQG0ZZ Repair Vagina, Open Approach (ICD-10-PCS; principal; 2017-06-19 14:45)
DX: T81.31XA Disruption of external operation (surgical) wound, not elsewhere classified, initial encounter (principal); K65.9 Peritonitis, unspecified; D57.3 Sickle-cell trait; E66.9 Obesity, unspecified; Z68.27 Body mass index [BMI] 27.0-27.9, adult; K80.80 Other cholelithiasis without obstruction; G43.909 Migraine, unspecified, not intractable, without status migrainosus; K21.9 Gastro-esophageal reflux disease without esophagitis; F41.9 Anxiety disorder, unspecified; F17.210 Nicotine dependence, cigarettes, uncomplicated
CPT/HCPCS: 36415; 74177; 76700; 76856; 80053; 81001; 83690; 85025; 86850; 86900; 86901; 87086; 940; 96361; 96365; 96375; 96376; 99285; C9290; J0131; J0330; J0690; J1100; J1170; J1335; J2250; J2270; J2405; J2704; J3010; J3490; J7030

== ENCOUNTER 2019-01-18 04:43 | Emergency (ER) | payer MEDICAID ==
[2019-01-18] MEDS ORDERED: ONDANSETRON HCL INJ/PF 4 MG/2 ML SDV IV ONE (05:13)
[2019-01-18] MEDS ORDERED: NORMAL SALINE 1000 ML 1,000 ML IV ONE (05:13)
[2019-01-18] MEDS ORDERED: KETOROLAC TROMETHAMINE INJ/PF 30 MG/1 ML SDV IV ONE (05:44)
--- NOTE | 2019-01-18 05:49 | ER Document Report ---
ED Medical Screen (RME) - General Chief Complaint: Abdominal Pain Stated Complaint: VOMITING Time Seen by Provider: 01/18/19 05:44 Notes: 28-year-old female, chief complaint of vomiting and mid upper abdominal pain since yesterday. Has had several loose stools as well. No fever. Has had a partial hysterectomy. TRAVEL OUTSIDE OF THE [place] IN LAST 30 DAYS: No - Related Data Allergies/Adverse Reactions: No Known Allergies Allergy (Verified 04/04/17 17:36) Past Medical History - Past Medical History Cardiac Medical History: Denies: Hx Heart Attack, Hx Hypertension Pulmonary Medical History: Reports: Hx Pneumonia Denies: Hx Asthma Neurological Medical History: Reports: Hx Migraine. Denies: Hx Cerebrovascular Accident, Hx Seizures Renal/ Medical History: Reports: Hx Ovarian Cysts. Denies: Hx Peritoneal Dialysis GI Medical History: Reports: Hx Gastroesophageal Reflux Disease. Denies: Hx Hepatitis, Hx Hiatal Hernia, Hx Ulcer Psychiatric Medical History: Reports: Hx Anxiety Infectious Medical History: Denies: Hx Hepatitis Past Surgical History: Reports: Hx Hysterectomy, Hx Tubal Ligation. Denies: Hx Mastectomy, Hx Open Heart Surgery, Hx Pacemaker - Immunizations Immunizations up to date: No Hx Diphtheria, Pertussis, Tetanus Vaccination: Yes Physical Exam - Vital signs Vitals: Temp Pulse Resp BP Pulse Ox 98.6 F 109 H 18 114/57 L 97 01/18/19 04:50 01/18/19 04:50 01/18/19 04:50 01/18/19 04:50 01/18/19 04:50 - Abdominal Tenderness: Tender - Upper abdominal pain, worst in the right upper quadrant Course - Re-evaluation Re-evalutation: I have greeted and performed a rapid initial assessment of this patient. A comprehensive ED assessment and evaluation of the patient, analysis of test results and completion of the medical decision making process will be conducted by additional ED providers. - Vital Signs Vital signs: Temp Pulse Resp BP Pulse Ox 98.6 F 109 H 18 114/57 L 97 01/18/19 04:50 01/18/19 04:50 01/18/19 04:50 01/18/19 04:50 01/18/19 04:50
[2019-01-18 06:09] LABS: HEMATOCRIT 38.6 % (36.0-47.0); HEMOGLOBIN 13.3 g/dL (12.0-15.5); MEAN CORPUSCULAR HGB CONC 34.5 g/dL (32.0-36.0); MEAN CORPUSCULAR VOLUME 87 fl (80-97); PLATELET COUNT 343 10^3/uL (150-450); RED BLOOD COUNT 4.43 10^6/uL (3.72-5.28); RED CELL DISTRIBUTION WIDTH 12.7 % (11.5-14.0); WHITE BLOOD COUNT 18.6 10^3/uL (4.0-10.5)
[2019-01-18 06:24] LABS: ALANINE AMINOTRANSFERASE 22 U/L (9-52); ALBUMIN 4.3 g/dL (3.5-5.0); ALKALINE PHOSPHATASE 58 U/L (38-126); ANION GAP 10 (5-19); ASPARTATE AMINO TRANSFERASE 18 U/L (14-36); BILIRUBIN,DIRECT 0.2 mg/dL (0.0-0.4); BILIRUBIN,TOTAL 1.5 mg/dL (0.2-1.3); BLOOD UREA NITROGEN 10 mg/dL (7-20); CALCIUM 9.5 mg/dL (8.4-10.2); CARBON DIOXIDE 25 mmol/L (22-30); CHLORIDE 106 mmol/L (98-107); GLUCOSE 117 mg/dL (75-110); LIPASE 30.1 U/L (23-300); POTASSIUM 3.9 mmol/L (3.6-5.0); SODIUM 140.8 mmol/L (137-145); TOTAL PROTEIN 7.1 g/dL (6.3-8.2)
[2019-01-18 06:28] LABS: APPEARANCE,URINE CLEAR; BILIRUBIN,URINE NEGATIVE (NEGATIVE); COLOR,URINE YELLOW; GLUCOSE, URINE NEGATIVE (NEGATIVE); KETONES,URINE 80 mg/dL (NEGATIVE); LEUKOCYTE ESTERASE,URINE NEGATIVE (NEGATIVE); NITRITE,URINE NEGATIVE (NEGATIVE); PROTEIN,URINE NEGATIVE (NEGATIVE); URINE SPECIFIC GRAVITY 1.016; UROBILINOGEN,URINE NEGATIVE mg/dL (<2.0)
--- NOTE | 2019-01-18 06:34 | RADIOLOGY REPORT (SQ) ---
CLINICAL HISTORY: RUQ abd pain, vomiting COMPARISON: None. TECHNIQUE: US ABDOMEN LIMITED on 01/18/2019 5:44 AM SUPERVISOR DOPING FINDINGS: Liver is normal in echotexture. Portal vein is patent. Gallbladder is normally distended without gallstones, wall thickening or pericholecystic fluid. Common bile duct measures 1 mm. Right kidney measures 11.1 cm without hydronephrosis. Visualized portions of the pancreas are normal. The aorta is nonaneurysmal. IMPRESSION: Normal study.
[2019-01-18 06:54] LABS: ABSOLUTE LYMPHOCYTES# (MANUAL) 1.3 10^3/uL (0.5-4.7); ABSOLUTE MONOCYTES # (MANUAL) 0.2 10^3/uL (0.1-1.4); ABSOLUTE NEUTROPHILS# (MANUAL) 17.1 10^3/uL (1.7-8.2); BASOPHILS % (MANUAL) 0 % (0-2); EOSINOPHILS % (MANUAL) 0 % (0-6); LYMPHOCYTES % (MANUAL) 4 % (13-45); MONOCYTES % (MANUAL) 1 % (3-13); SEGMENTED NEUTROPHILS % (MAN) 92 % (42-78); TOTAL CELLS COUNTED 100
[2019-01-18 06:56] LABS: OVALOCYTES SLIGHT; PLATELET COMMENT ADEQUATE; POIKILOCYTOSIS SLIGHT; TEAR DROP CELLS SLIGHT
--- NOTE | 2019-01-18 07:31 | ER Document Report ---
ED General - General Chief Complaint: Abdominal Pain Stated Complaint: VOMITING Time Seen by Provider: 01/18/19 05:44 Primary Care Provider: RUPESH HOBSON MD [ACTIVE STAFF] - Follow up in 3-5 days ( or your primary care. ) Notes: Patient is a 28-year-old female that presents to the emergency department for chief complaint of right-sided abdominal pain. Patient states that this pain started last night and was coming and going she describes as an aching sensation and occasionally sharp, starting in the right upper quadrant of her abdomen extending towards the midline. She is had associated nausea, vomiting and diarrhea. She thinks it may be related to some [place] food she ate last night because the symptoms started shortly after eating them. She denies any sick contacts that she is aware. She currently rates her pain as a 0 out of 10, and has gone away, but earlier described it as a 6 out of 10 and sharp stabbing pain. Denies any hematuria, dysuria, urinary frequency, vaginal bleeding or discharge. She states she is otherwise healthy, denies fevers, chills, night sweats, chest pain, shortness of breath or difficulty breathing. Past Medical History: Denies chronic medical conditions Past Surgical History: Hysterectomy Social History: Admits to smoking cigarettes, denies alcohol or drug use. Family History: Reviewed and noncontributory for presenting illness Allergies: Reviewed, see documented allergy list. REVIEW OF SYSTEMS: Other than noted above, the 12 point review of systems was reviewed with the patient and were negative, all pertinent findings are included in the HPI. PHYSICAL EXAMINATION: Vital signs reviewed, nursing noted reviewed. GENERAL: Well-appearing, well-nourished and in no acute distress. HEAD: Atraumatic, normocephalic. EYES: Eyes appear normal, extraocular movements intact, sclera anicteric, conjunctiva are normal. ENT: nares patent, oropharynx clear without exudates. Moist mucous membranes. NECK: Normal range of motion, supple without lymphadenopathy LUNGS: Breath sounds clear to auscultation bilaterally and equal. No wheezes rales or rhonchi. HEART: Regular rate and rhythm without murmurs ABDOMEN: Soft, obese, nontender, normoactive bowel sounds. No rebound, guarding, or rigidity. No masses appreciated. EXTREMITIES: Nontender, good range of motion, no pitting or edema. NEUROLOGICAL: No focal neurological deficits. Moves all extremities spontaneously Motor and sensory grossly intact on exam. PSYCH: Normal mood, normal affect. SKIN: Warm, Dry, normal turgor, no rashes or lesions noted on exposed skin TRAVEL OUTSIDE OF THE [place] IN LAST 30 DAYS: No - Related Data Allergies/Adverse Reactions: No Known Allergies Allergy (Verified 04/04/17 17:36) Past Medical History - Social History Smoking Status: Unknown if Ever Smoked Family History: Reviewed & Not Pertinent Patient has suicidal ideation: No Patient has homicidal ideation: No - Past Medical History Cardiac Medical History: Denies: Hx Heart Attack, Hx Hypertension Pulmonary Medical History: Reports: Hx Pneumonia Denies: Hx Asthma Neurological Medical History: Reports: Hx Migraine. Denies: Hx Cerebrovascular Accident, Hx Seizures Renal/ Medical History: Reports: Hx Ovarian Cysts. Denies: Hx Peritoneal Dialysis GI Medical History: Reports: Hx Gastroesophageal Reflux Disease. Denies: Hx Hepatitis, Hx Hiatal Hernia, Hx Ulcer Psychiatric Medical History: Reports: Hx Anxiety Infectious Medical History: Denies: Hx Hepatitis Past Surgical History: Reports: Hx Hysterectomy, Hx Tubal Ligation. Denies: Hx Mastectomy, Hx Open Heart Surgery, Hx Pacemaker - Immunizations Immunizations up to date: No Hx Diphtheria, Pertussis, Tetanus Vaccination: Yes Hx Pneumococcal Vaccination: 11/23/00 Physical Exam - Vital signs Vitals: Temp Pulse Resp BP Pulse Ox 98.6 F 109 H 18 114/57 L 97 01/18/19 04:50 01/18/19 04:50 01/18/19 04:50 01/18/19 04:50 01/18/19 04:50 Course - Re-evaluation Re-evalutation: Patient seen and examined vital signs reviewed. Laboratory data and imaging were ordered as appropriate for the patient's presenting symptoms and complaint, with consideration of any critical or life threatening conditions that may be associated with their obtained history and exam as noted above. Patient was treated with IV fluids, Zofran Results were reviewed when available and demonstrated negative right upper quadrant ultrasound, she did have a leukocytosis, likely reactive secondary to vomiting, the rest of her blood work was unremarkable, LFTs normal. Lipase normal. The patient was re-evaluated and was stable and improved, given 2 L of fluids total, pain did not return during her ED course. Evaluation was most consistent with nausea and vomiting and diarrhea, nonsp ecific, possible gastroenteritis, advised patient to return if her symptoms worsened, which she was agreeable to. Results were discussed with the patient at this point, after careful consideration I feel that that patient can be discharged from the emergency department, the patient was educated treatments and reasons to return to the emergency department based on their presumed diagnosis as noted above, they were advised to followup with a primary care physician in 2-3 days. Patient was agreeable to plan of care. *Note is created using voice recognition software and may contain spelling, syn tax or grammatical errors. Laboratory 01/18/19 01/18/19 01/18/19 05:40 05:40 05:40 WBC 18.6 H RBC 4.43 Hgb 13.3 Hct 38.6 MCV 87 MCH 30.0 MCHC 34.5 RDW 12.7 Plt Count 343 Total Counted 100 Seg Neutrophils % Not Reportable Seg Neuts % (Manual) 92 H Lymphocytes % Not Reportable Lymphocytes % (Manual) 4 L Atypical Lymphs % 3 Monocytes % Not Reportable Monocytes % (Manual) 1 L Eosinophils % Not Reportable Eosinophils % (Manual) 0 Basophils % Not Reportable Basophils % (Manual) 0 Absolute Neutrophils Not Reportable Abs Neuts (Manual) 17.1 H Absolute Lymphocytes Not Reportable Abs Lymphs (Manual) 1.3 Absolute Monocytes Not Reportable Abs Monocytes (Manual) 0.2 Absolute Eosinophils Not Reportable Absolute Eos (Manual) 0.0 Absolute Basophils Not Reportable Abs Basophils (Manual) 0.0 Platelet Comment ADEQUATE Poikilocytosis SLIGHT Tear Drop Cells SLIGHT Ovalocytes SLIGHT Sodium 140.8 Potassium 3.9 Chloride 106 Carbon Dioxide 25 Anion Gap 10 BUN 10 Creatinine 0.65 Est GFR ( Amer) > 60 Est GFR (Non-Af Amer) > 60 Glucose 117 H Calcium 9.5 Total Bilirubin 1.5 H Direct Bilirubin 0.2 Neonat Total Bilirubin Not Reportable Neonat Direct Bilirubin Not Reportable Neonat Indirect Bili Not Reportable AST 18 ALT 22 Alkaline Phosphatase 58 Total Protein 7.1 Albumin 4.3 Lipase 30.1 Urine Color YELLOW Urine Appearance CLEAR Urine pH 5.0 Ur Specific Sabine 1.016 Urine Protein NEGATIVE Urine Glucose (UA) NEGATIVE Urine Ketones 80 H Urine Blood NEGATIVE Urine Nitrite NEGATIVE Urine Bilirubin NEGATIVE Urine Urobilinogen NEGATIVE Ur Leukocyte Esterase NEGATIVE Urine WBC (Auto) 1 Urine RBC (Auto) 1 U Hyaline Cast (Auto) 3 Squamous Epi Cells Auto 1 Urine Mucus (Auto) MOD Urine Ascorbic Acid NEGATIVE Abdomen Ultrasound 01/18/19 05:44 IMPRESSION: Normal study. - Vital Signs Vital signs: Temp Pulse Resp BP Pulse Ox 98.1 F 85 18 103/53 L 99 01/18/19 09:15 01/18/19 09:15 01/18/19 04:50 01/18/19 09:15 01/18/19 09:15 - Laboratory Result Diagrams: 01/18/19 05:40 01/18/19 05:40 Laboratory results interpreted by me: 01/18/19 01/18/19 01/18/19 05:40 05:40 05:40 WBC 18.6 H Seg Neuts % (Manual) 92 H Lymphocytes % (Manual) 4 L Monocytes % (Manual) 1 L Abs Neuts (Manual) 17.1 H Glucose 117 H Total Bilirubin 1.5 H Urine Ketones 80 H Discharge - Discharge Clinical Impression: Abdominal pain Qualifiers: Abdominal location: right upper quadrant Qualified Code(s): R10.11 - Right upper quadrant pain Diarrhea Qualifiers: Diarrhea type: unspecified type Qualified Code(s): R19.7 - Diarrhea, unspecified Condition: Stable Disposition: HOME, SELF-CARE Instructions: Abdominal Pain ([facility]) Additional Instructions: Please monitor for worsening symptoms, continues to hydrate at home, you can take the antinausea medications that have been prescribed, and follow-up with the [facility] primary care physician. Prescriptions: Ondansetron [Zofran Odt 4 mg Tablet] 1 tab PO Q8H PRN #15 tab.rapdis PRN Reason: For Nausea/Vomiting Referrals: RUPESH HOBSON MD [ACTIVE STAFF] - Follow up in 3-5 days ( or your primary care. )
[2019-01-18] MEDS ORDERED: RINGERS SOLUTION,LACTATED 1,000 ML IV ONE (07:46)
[2019-01-18 09:19] VITALS: BP 103/53
== END 2019-01-18 09:20 | disposition home or self-care (01) ==
LOC: ER 04:43
DX: R10.11 Right upper quadrant pain (principal); R19.7 Diarrhea, unspecified; R10.9 Unspecified abdominal pain; R11.2 Nausea with vomiting, unspecified; F17.210 Nicotine dependence, cigarettes, uncomplicated
CPT/HCPCS: 99284; 96361; 96374; 96375; 36415; 83690; 85025; 80053; 81001; 76705; J1885; J2405; J7030; J7120

== ENCOUNTER 2019-08-18 23:47 | Emergency (ER) | payer MEDICAID ==
[2019-08-19 00:30] LABS: ABSOLUTE BASOPHILS # (AUTO) 0.1 10^3/uL (0.0-0.2); ABSOLUTE EOSINOPHILS # (AUTO) 0.2 10^3/uL (0.0-0.6); ABSOLUTE LYMPHOCYTES (AUTO) 3.2 10^3/uL (0.5-4.7); ABSOLUTE MONOCYTES (AUTO) 1.3 10^3/uL (0.1-1.4); ABSOLUTE NEUT (AUTO) 5.5 10^3/uL (1.7-8.2); APPEARANCE,URINE CLEAR; BILIRUBIN,URINE NEGATIVE (NEGATIVE); COLOR,URINE STRAW; EOSINOPHILS % (AUTO) 1.8 % (0-6); GLUCOSE, URINE NEGATIVE (NEGATIVE); HEMATOCRIT 37.8 % (36.0-47.0); HEMOGLOBIN 12.8 g/dL (12.0-15.5); KETONES,URINE NEGATIVE (NEGATIVE); LEUKOCYTE ESTERASE,URINE NEGATIVE (NEGATIVE); LYMPHOCYTES % (AUTO) 31.4 % (13-45); MEAN CORPUSCULAR HEMOGLOBIN 28.8 pg (27.0-33.4); MEAN CORPUSCULAR HGB CONC 33.7 g/dL (32.0-36.0); MEAN CORPUSCULAR VOLUME 86 fl (80-97); MONOCYTES % (AUTO) 12.7 % (3-13); NITRITE,URINE NEGATIVE (NEGATIVE); PLATELET COUNT 303 10^3/uL (150-450); PROTEIN,URINE NEGATIVE (NEGATIVE); RED BLOOD COUNT 4.43 10^6/uL (3.72-5.28); RED CELL DISTRIBUTION WIDTH 12.7 % (11.5-14.0); SEGMENTED NEUTROPHILS % (AUTO) 53.1 % (42-78); TOTAL CELLS COUNTED % (AUTO) 100 %; URINE SPECIFIC GRAVITY 1.001; UROBILINOGEN,URINE NEGATIVE mg/dL (<2.0); WHITE BLOOD COUNT 10.3 10^3/uL (4.0-10.5)
[2019-08-19 00:37] LABS: ALKALINE PHOSPHATASE 59 U/L (38-126); ANION GAP 12 (5-19); ASPARTATE AMINO TRANSFERASE 18 U/L (14-36); BILIRUBIN,DIRECT 0.1 mg/dL (0.0-0.4); BILIRUBIN,TOTAL 0.4 mg/dL (0.2-1.3); BLOOD UREA NITROGEN 4 mg/dL (7-20); CALCIUM 9.3 mg/dL (8.4-10.2); CARBON DIOXIDE 21 mmol/L (22-30); CHLORIDE 107 mmol/L (98-107); GLUCOSE 94 mg/dL (75-110); POTASSIUM 3.5 mmol/L (3.6-5.0); TOTAL PROTEIN 6.9 g/dL (6.3-8.2)
[2019-08-19] MEDS ORDERED: DICYCLOMINE HCL 10 MG CAPSULE PO ONE (01:14)
--- NOTE | 2019-08-19 01:21 | ER Document Report ---
ED General - General Chief Complaint: Abdominal Pain Stated Complaint: ABDOMINAL PAIN Time Seen by Provider: 08/19/19 01:03 Primary Care Provider: MAUDE BOYCE MD [Primary Care Provider] - Follow up as needed TRAVEL OUTSIDE OF THE [place] IN LAST 30 DAYS: No - HPI Notes: 29-year-old female presents with abdominal pain. Patient had an antecedent cough and cold illness approximately 3 days ago. Did quite a bit of coughing and wonders if it made her abdominal wall sort. Last day still gradual onset crampy throbbing sharp lower abdominal midline pain, worse with coughing. No nausea vomiting. No vaginal bleeding. History of partial hysterectomy via laparoscopic technique. No fever. No unplanned weight loss. Moderate intensity, nonradiating. No frequency urgency or dysuria. No other modifying factors, no other associated symptoms, no other provocative or palliative factors. - Related Data Allergies/Adverse Reactions: No Known Allergies Allergy (Verified 04/04/17 17:36) Past Medical History - Social History Smoking Status: Current Every Day Smoker Chew tobacco use (# tins/day): No Frequency of alcohol use: Occasional Drug Abuse: None Family History: Reviewed & Not Pertinent Patient has suicidal ideation: No Patient has homicidal ideation: No - Past Medical History Cardiac Medical History: Denies: Hx Heart Attack, Hx Hypertension Pulmonary Medical History: Reports: Hx Pneumonia Denies: Hx Asthma Neurological Medical History: Reports: Hx Migraine. Denies: Hx Cerebrovascular Accident, Hx Seizures Renal/ Medical History: Reports: Hx Ovarian Cysts. Denies: Hx Peritoneal Dialysis GI Medical History: Reports: Hx Gastroesophageal Reflux Disease. Denies: Hx Hepatitis, Hx Hiatal Hernia, Hx Ulcer Psychiatric Medical History: Reports: Hx Anxiety Infectious Medical History: Denies: Hx Hepatitis Past Surgical History: Reports: Hx Hysterectomy, Hx Tubal Ligation. Denies: Hx Mastectomy, Hx Open Heart Surgery, Hx Pacemaker - Immunizations Immunizations up to date: No Hx Diphtheria, Pertussis, Tetanus Vaccination: Yes Hx Pneumococcal Vaccination: 11/23/00 Review of Systems - Review of Systems Notes: Review of systems as in the history of present illness, otherwise negative x 10 systems. Physical Exam - Vital signs Vitals: Temp Pulse Resp BP Pulse Ox 98.0 F 86 20 132/89 H 100 08/18/19 23:53 08/18/19 23:53 08/18/19 23:53 08/18/19 23:53 08/18/19 23:53 - Notes Notes: General: Well developed . HEENT: Normocephalic, atraumatic. Pupils equal round reactive to light. No JVD. Chest: No trauma. Respiratory: Good air exchange, normal excursion. Cardiac: Regular rhythm. No murmurs or gallops. Abdomen: Soft, benign. Nondistended, no guarding rigidity rebound. Mild midline lower abdominal tenderness. Back: No asymmetry or gross abnormality. Motor: Grossly normal power and tone. Neurologic: Alert, nonfocal. Cranial nerves II-12 are intact. Sensation intact. Vascular: Well perfused. Normal peripheral pulses. Skin: No petechiae or purpura. Course - Re-evaluation Re-evalutation: 08/19/19 01:18 Patient was evaluated by the [facility] provider prior to my evaluation. Studies / interventions have been ordered by this provider and may still be pending. 29-year-old female with a benign abdominal examination and minimal midline lower abdominal tenderness. She has had a partial hysterectomy, I reviewed her labs, CBC is normal, chemistries LFTs lipase are unremarkable, urine unremarkable for acute abnormality. Given the patient's benign exam, I think she is safe for outpatient follow-up. May be related to some gynecologic etiology that is nonemergent, however, I have impressed upon her the absolute critical nature to follow-up with her [facility] doctor over the next week or 2, she is to have a 24 to 48-hour recheck, if she has fever or any worsening symptoms will return immediately. Given a dose of B entyl, prescription for the same. - Vital Signs Vital signs: Temp Pulse Resp BP Pulse Ox 98.0 F 86 20 132/89 H 100 08/18/19 23:53 08/18/19 23:53 08/18/19 23:53 08/18/19 23:53 08/18/19 23:53 - Laboratory Result Diagrams: 08/19/19 00:13 08/19/19 00:13 Laboratory results interpreted by me: 08/19/19 00:13 Potassium 3.5 L Carbon Dioxide 21 L BUN 4 L Discharge - Discharge Clinical Impression: Abdominal pain Qualifiers: Abdominal location: unspecified location Qualified Code(s): R10.9 - Unspecified abdominal pain Condition: Stable Disposition: HOME, SELF-CARE Instructions: Abdominal Pain ([facility]) Prescriptions: Dicyclomine HCl [Bentyl 20 mg Tablet] 20 mg PO Q8 #12 tablet Ondansetron [Zofran Odt 4 mg Tablet] 1 - 2 tab PO Q4H PRN #15 tab.rapdis PRN Reason: For Nausea/Vomiting Referrals: MAUDE BOYCE MD [Primary Care Provider] - Follow up tomorrow
[2019-08-19 01:49] VITALS: BP 130/80
== END 2019-08-19 01:48 | disposition home or self-care (01) ==
LOC: ER 23:47
DX: R10.9 Unspecified abdominal pain (principal); R10.819 Abdominal tenderness, unspecified site; F17.200 Nicotine dependence, unspecified, uncomplicated; Z90.711 Acquired absence of uterus with remaining cervical stump; Z87.19 Personal history of other diseases of the digestive system; Z98.51 Tubal ligation status
CPT/HCPCS: 99284; 36415; 83690; 85025; 81025; 80053; 81001; J3490

== ENCOUNTER 2020-06-16 22:00 | Emergency (ER) | payer MEDICAID ==
[2020-06-17] MEDS ORDERED: NORMAL SALINE 1000 ML 1,000 ML IV ONE (04:58)
--- NOTE | 2020-06-17 04:59 | ER Document Report ---
ED General - General Chief Complaint: General Weakness Stated Complaint: WEAKNESS,DIZZINESS Time Seen by Provider: 06/17/20 04:51 Primary Care Provider: MAUDE BOYCE MD [Primary Care Provider] - Follow up as needed Notes: Patient is a 30-year-old female that comes emergency department for chief complaint of generalized weakness and pain in both hips radiating into both of her thighs. Initially she stated she felt dizzy but when I asked her to clarify she stated she did not actually feel like she was spinning around or feel lightheaded but she felt like she was weak and needed to pull herself up with her arms because it was hard to get up. She denies numbness, she is able to ambulate even though she still has the discomfort in her thighs. She denies fever, injury, nausea, vomiting. She states that she got dehydrated over the past day but was trying to rehydrate, she is not sure how successful she was. She denies any daily medications. She has a partial hysterectomy because of abnormal cells on the cervix, no other reported medical history. She smokes, drinks occasional alcohol, denies recreational drugs. TRAVEL OUTSIDE OF THE [place] IN LAST 30 DAYS: No - Related Data Allergies/Adverse Reactions: No Known Allergies Allergy (Verified 04/04/17 17:36) Past Medical History - General Information source: Patient - Social History Smoking Status: Current Every Day Smoker Frequency of alcohol use: None Drug Abuse: None Lives with: Family Family History: Reviewed & Not Pertinent - Past Medical History Cardiac Medical History: Denies: Hx Heart Attack, Hx Hypertension Pulmonary Medical History: Reports: Hx Pneumonia Denies: Hx Asthma Neurological Medical History: Reports: Hx Migraine. Denies: Hx Cerebrovascular Accident, Hx Seizures Renal/ Medical History: Reports: Hx Ovarian Cysts. Denies: Hx Peritoneal Dialysis GI Medical History: Reports: Hx Gastroesophageal Reflux Disease. Denies: Hx Hepatitis, Hx Hiatal Hernia, Hx Ulcer Psychiatric Medical History: Reports: Hx Anxiety Infectious Medical History: Denies: Hx Hepatitis Past Surgical History: Reports: Hx Hysterectomy, Hx Tubal Ligation. Denies: Hx Mastectomy, Hx Open Heart Surgery, Hx Pacemaker - Immunizations Immunizations up to date: No Hx Diphtheria, Pertussis, Tetanus Vaccination: Yes Hx Pneumococcal Vaccination: 11/23/00 Review of Systems - Review of Systems Constitutional: See HPI EENT: No symptoms reported Cardiovascular: No symptoms reported Respiratory: No symptoms reported Gastrointestinal: No symptoms reported Genitourinary: No symptoms reported Female Genitourinary: No symptoms reported Musculoskeletal: See HPI Skin: No symptoms reported Hematologic/Lymphatic: No symptoms reported Neurological/Psychological: No symptoms reported Physical Exam - Vital signs Vitals: Temp Pulse Resp BP Pulse Ox 98.3 F 67 20 133/101 H 100 06/16/20 22:18 06/16/20 22:18 06/16/20 22:18 06/16/20 22:18 06/16/20 22:18 - Notes Notes: GENERAL: Alert, interacts well. No acute distress. HEAD: Normocephalic, atraumatic. EYES: Pupils equal, round, and reactive to light. Extraocular movements intact. ENT: Oral mucosa moist, tongue midline. Oropharynx unremarkable. Airway patent. LUNGS: Clear to auscultation bilaterally, no wheezes, rales, or rhonchi. No respiratory distress. Non-tender chest wall. HEART: Regular rate and rhythm. No murmur ABDOMEN: Soft, non-tender. Non-distended. Bowel sounds present in all 4 quadrants. GENITOURINARY: Deferred EXTREMITIES: Patient has discomfort over the proximal anterior thighs bilaterally, when she raises each leg her legs start shaking and she complains of discomfort. She is still able to perform full range of motion and she is still able to ambulate. She has normal distal neurovascular exam, there is no discoloration or severe tenderness with palpation, temperature is normal. Extremities unremarkable otherwise. BACK: no cervical, thoracic, lumbar midline tenderness. No saddle anesthesia, normal distal neurovascular exam. Moves all extremities in full range of motion. NEUROLOGICAL: Alert and oriented x3. Normal speech. Cranial nerves II through XII grossly intact. Strength 5/5 in all extremities. PSYCH: Normal affect, normal mood. SKIN: Warm, dry, normal turgor. No rashes or lesions noted. Course - Re-evaluation Re-evalutation: Patient has pain over her bilateral anterior thighs and some discomfort with movement, some shakiness with trying to keep the leg elevated, but unremarkable exam otherwise. No significant tenderness, no edema suggesting clot, low suspicion of infection, no neurological deficits. No cardiac symptoms reported. Patient was reported generalized weakness but this is also related mainly to her legs. CBC shows mild leukocytosis, nonspecific, ESR is not elevated, chemistry unremarkable including magnesium, CK is not elevated, urinalysis un remarkable. Vital signs unremarkable. Patient sleeping and easily aroused on reevaluation. I feel most strongly that this is muscular, low suspicion of neurologic or infectious etiology. Discussed primary care follow-up, placing a muscle relaxers, discussed return precautions. Patient states understanding and agreement. - Vital Signs Vital signs: Temp Pulse Resp BP Pulse Ox 98.3 F 64 20 140/87 H 100 06/17/20 03:28 06/17/20 03:28 06/16/20 22:18 06/17/20 03:28 06/17/20 03:28 - Laboratory Result Diagrams: 06/17/20 05:10 06/17/20 05:10 Laboratory results interpreted by me: 06/17/20 06/17/20 05:10 05:10 WBC 13.4 H Absolute Neuts (auto) 8.3 H Absolute Monos (auto) 1.5 H Sodium 135.6 L Discharge - Discharge Clinical Impression: Weakness Leg pain Qualifiers: Laterality: bilateral Qualified Code(s): M79.604 - Pain in right leg Condition: Stable Disposition: HOME, SELF-CARE Additional Instructions: Your work-up does not show any obvious concerning abnormality, your evaluation is reassuring, this appears to be muscular strain only with no other concerning findings noted. I recommend the muscle relaxers, heat to the area, and rest. This should simply resolve. Follow-up with primary care for additional testing if symptoms continue. Return if you worsen including difficulty breathing, passing out, fever, swelling or redness of the legs, or any other concerning or worsening symptoms. Prescriptions: Methocarbamol [Robaxin-750] 750 mg PO QID PRN #20 tablet PRN Reason: Referrals: MAUDE BOYCE MD [Primary Care Provider] - Follow up as needed
[2020-06-17 05:32] LABS: ABSOLUTE BASOPHILS # (AUTO) 0.1 10^3/uL (0.0-0.2); ABSOLUTE EOSINOPHILS # (AUTO) 0.2 10^3/uL (0.0-0.6); ABSOLUTE LYMPHOCYTES (AUTO) 3.4 10^3/uL (0.5-4.7); ABSOLUTE MONOCYTES (AUTO) 1.5 10^3/uL (0.1-1.4); ABSOLUTE NEUT (AUTO) 8.3 10^3/uL (1.7-8.2); BASOPHILS % (AUTO) 0.6 % (0-2); EOSINOPHILS % (AUTO) 1.7 % (0-6); HEMATOCRIT 40.1 % (36.0-47.0); HEMOGLOBIN 13.7 g/dL (12.0-15.5); LYMPHOCYTES % (AUTO) 25.2 % (13-45); MEAN CORPUSCULAR HEMOGLOBIN 29.5 pg (27.0-33.4); MEAN CORPUSCULAR HGB CONC 34.3 g/dL (32.0-36.0); MEAN CORPUSCULAR VOLUME 86 fl (80-97); MONOCYTES % (AUTO) 11.1 % (3-13); PLATELET COUNT 322 10^3/uL (150-450); RED BLOOD COUNT 4.66 10^6/uL (3.72-5.28); RED CELL DISTRIBUTION WIDTH 12.6 % (11.5-14.0); SEGMENTED NEUTROPHILS % (AUTO) 61.4 % (42-78); TOTAL CELLS COUNTED % (AUTO) 100 %; WHITE BLOOD COUNT 13.4 10^3/uL (4.0-10.5)
[2020-06-17 05:49] LABS: APPEARANCE,URINE CLEAR; BILIRUBIN,URINE NEGATIVE (NEGATIVE); COLOR,URINE YELLOW; GLUCOSE, URINE NEGATIVE (NEGATIVE); KETONES,URINE NEGATIVE (NEGATIVE); LEUKOCYTE ESTERASE,URINE NEGATIVE (NEGATIVE); NITRITE,URINE NEGATIVE (NEGATIVE); PROTEIN,URINE NEGATIVE (NEGATIVE); URINE SPECIFIC GRAVITY 1.014; UROBILINOGEN,URINE NEGATIVE mg/dL (<2.0)
[2020-06-17 05:57] LABS: ALBUMIN 4.5 g/dL (3.5-5.0); ALKALINE PHOSPHATASE 58 U/L (38-126); ANION GAP 7 (5-19); ASPARTATE AMINO TRANSFERASE 22 U/L (14-36); BILIRUBIN,TOTAL 0.7 mg/dL (0.2-1.3); BLOOD UREA NITROGEN 14 mg/dL (7-20); CALCIUM 9.6 mg/dL (8.4-10.2); CARBON DIOXIDE 25 mmol/L (22-30); CHLORIDE 104 mmol/L (98-107); CREATINE KINASE 88 U/L (30-135); GLUCOSE 91 mg/dL (75-110); POTASSIUM 3.9 mmol/L (3.6-5.0); TOTAL PROTEIN 7.6 g/dL (6.3-8.2)
[2020-06-17] MEDS ORDERED: KETOROLAC TROMETHAMINE INJ/PF 30 MG/1 ML SDV IV ONE (06:12)
[2020-06-17 08:26] VITALS: BP 122/65
== END 2020-06-17 08:25 | disposition home or self-care (01) ==
LOC: ER 22:00
DX: R53.1 Weakness (principal); M79.604 Pain in right leg; M79.605 Pain in left leg; R42 Dizziness and giddiness; F17.200 Nicotine dependence, unspecified, uncomplicated
CPT/HCPCS: 99284; 96361; 96374; 36415; 82550; 83735; 85025; 85652; 80053; 81001; J1885; J7030

== ENCOUNTER 2020-11-24 01:55 | Emergency (ER) | payer MEDICAID ==
[2020-11-24] MEDS ORDERED: ACETAMINOPHEN 325 MG TABLET ONE (02:38)
[2020-11-24] MEDS ORDERED: ACETAMINOPHEN 325 MG TABLET PO ONE (02:39)
[2020-11-24 02:49] LABS: ABSOLUTE BASOPHILS # (AUTO) 0.1 10^3/uL (0.0-0.2); ABSOLUTE EOSINOPHILS # (AUTO) 0.2 10^3/uL (0.0-0.6); ABSOLUTE LYMPHOCYTES (AUTO) 2.7 10^3/uL (0.5-4.7); ABSOLUTE MONOCYTES (AUTO) 1.3 10^3/uL (0.1-1.4); ABSOLUTE NEUT (AUTO) 6.5 10^3/uL (1.7-8.2); BASOPHILS % (AUTO) 0.7 % (0-2); EOSINOPHILS % (AUTO) 2.3 % (0-6); HEMATOCRIT 35.6 % (36.0-47.0); HEMOGLOBIN 12.3 g/dL (12.0-15.5); LYMPHOCYTES % (AUTO) 25.1 % (13-45); MEAN CORPUSCULAR HEMOGLOBIN 29.4 pg (27.0-33.4); MEAN CORPUSCULAR HGB CONC 34.6 g/dL (32.0-36.0); MEAN CORPUSCULAR VOLUME 85 fl (80-97); MONOCYTES % (AUTO) 12.1 % (3-13); PLATELET COUNT 279 10^3/uL (150-450); RED BLOOD COUNT 4.19 10^6/uL (3.72-5.28); RED CELL DISTRIBUTION WIDTH 12.7 % (11.5-14.0); SEGMENTED NEUTROPHILS % (AUTO) 59.8 % (42-78); TOTAL CELLS COUNTED % (AUTO) 100 %; WHITE BLOOD COUNT 10.9 10^3/uL (4.0-10.5)
[2020-11-24 03:00] LABS: ALBUMIN 3.5 g/dL (3.5-5.0); ALKALINE PHOSPHATASE 73 U/L (38-126); ANION GAP 7 (5-19); ASPARTATE AMINO TRANSFERASE 26 U/L (14-36); BILIRUBIN,TOTAL 0.8 mg/dL (0.2-1.3); BLOOD UREA NITROGEN 8 mg/dL (7-20); CARBON DIOXIDE 22 mmol/L (22-30); CHLORIDE 109 mmol/L (98-107); CREATINE KINASE 64 U/L (30-135); GLUCOSE 107 mg/dL (75-110); POTASSIUM 3.6 mmol/L (3.6-5.0); TOTAL PROTEIN 6.3 g/dL (6.3-8.2)
[2020-11-24 03:09] LABS: CREATINE KINASE MB 0.36 ng/mL (<4.55)
[2020-11-24 03:36] LABS: TROPONIN I < 0.012 ng/mL
--- NOTE | 2020-11-24 03:50 | RADIOLOGY REPORT (SQ) ---
CHEST X-RAY 1 VIEW on 11/24/2020 at 3:13 AM CLINICAL INDICATION: Chest congestion COMPARISON: 02/27/2016 FINDINGS: The lungs are clear. Cardiac, hilar and mediastinal contours are within normal limits. Pulmonary vascularity is within normal limits. No bony abnormality is noted. IMPRESSION: No active disease.
--- NOTE | 2020-11-24 07:51 | EKG REPORT ---
SEVERITY:- NORMAL ECG - SINUS RHYTHM : Confirmed by: Pablo Farooq MD 24-Nov-2020 07:50:25
--- NOTE | 2020-11-24 09:45 | ER Document Report ---
ED General - General Chief Complaint: Chest Congestion Stated Complaint: SHORTNESS OF BREATH/CONGESTION Time Seen by Provider: 11/24/20 09:45 Primary Care Provider: MAUDE BOYCE MD [Primary Care Provider] - Follow up in 3-5 days TRAVEL OUTSIDE OF THE [place] IN LAST 30 DAYS: No - HPI Notes: 30-year-old female presents to the emergency room today for evaluation of shortness of breath, sore throat, productive cough and chest congestion that started this morning around 1:00 in the morning. She felt like she was not breathing appropriately when she woke up at 1 AM. Denies any history of asthma or COPD.. She is also reporting joint pain, reports chills denies fevers. reports intermittent productive cough, she tried [id number] cold and sinus medication without any relief. Denies any nausea vomiting or abdominal pain. Patient states she did not get the flu shot this year, denies any exposure to Covid that she is aware of or any family members being exposed to Covid. Denies having a positive Covid test. Denies any chest pain, nausea, vomiting, diarrhea, abdominal pain. LMP 2 weeks ago - Related Data Allergies/Adverse Reactions: No Known Allergies Allergy (Verified 04/04/17 17:36) Past Medical History - General Information source: Patient - Social History Smoking Status: Current Every Day Smoker Chew tobacco use (# tins/day): No Frequency of alcohol use: Social Drug Abuse: None Family History: Reviewed & Not Pertinent - Past Medical History Cardiac Medical History: Denies: Hx Heart Attack, Hx Hypertension Pulmonary Medical History: Reports: Hx Pneumonia Denies: Hx Asthma Neurological Medical History: Reports: Hx Migraine. Denies: Hx Cerebrovascular Accident, Hx Seizures Renal/ Medical History: Reports: Hx Ovarian Cysts. Denies: Hx Peritoneal Dialysis GI Medical History: Reports: Hx Gastroesophageal Reflux Disease. Denies: Hx Hepatitis, Hx Hiatal Hernia, Hx Ulcer Psychiatric Medical History: Reports: Hx Anxiety Infectious Medical History: Denies: Hx Hepatitis Past Surgical History: Reports: Hx Hysterectomy, Hx Tubal Ligation. Denies: Hx Mastectomy, Hx Open Heart Surgery, Hx Pacemaker - Immunizations Immunizations up to date: No Hx Diphtheria, Pertussis, Tetanus Vaccination: Yes Hx Pneumococcal Vaccination: 11/23/00 Review of Systems - Review of Systems Constitutional: No symptoms reported EENT: See HPI Cardiovascular: No symptoms reported Respiratory: See HPI Gastrointestinal: No symptoms reported Genitourinary: No symptoms reported Female Genitourinary: No symptoms reported Musculoskeletal: No symptoms reported Skin: No symptoms reported Hematologic/Lymphatic: No symptoms reported Neurological/Psychological: No symptoms reported Physical Exam - Vital signs Vitals: Temp Pulse Resp BP Pulse Ox 98.2 F 87 16 140/97 H 100 11/24/20 01:59 11/24/20 01:59 11/24/20 01:59 11/24/20 01:59 11/24/20 01:59 - Notes Notes: PHYSICAL EXAMINATION:reviewed vital signs by RN GENERAL: Well-appearing, well-nourished and in no acute distress. HEAD: Atraumatic, normocephalic. EYES: Pupils equal round and reactive to light, extraocular movements intact, conjunctiva are normal. ENT: TM intact with bilateral serous effusion, no erythema. Nares boggy bilaterally, oropharynx with erythema without exudates. Moist mucous membranes. NECK: Normal range of motion, supple without lymphadenopathy LUNGS: Breath sounds clear to auscultation bilaterally and equal. No wheezes rales or rhonchi. HEART: Regular rate and rhythm without murmurs ABDOMEN: Soft, nontender, nondistended abdomen. No guarding, no rebound. No masses appreciated. Female : deferred Musculoskeletal: Normal range of motion, no pitting or edema. No cyanosis. NEUROLOGICAL: Cranial nerves grossly intact. Normal speech, normal gait. Normal sensory, motor exams PSYCH: Normal mood, normal affect. SKIN: Warm, Dry, normal turgor, no rashes or lesions noted. Course - Re-evaluation Re-evalutation: 11/24/20 17:09 Afebrile vital stable no distress. Nursing notes reviewed. Chest x-ray negative. CBC negative for leukocytosis or anemia, CMP negative. Rapid influenza strep and Covid negative, pcr pending. Troponins x2 3 hours apart negative. EKG negative for acute STEMI, no ST segment elevations. Will treat patient with Z-Toby, prednisone and rescue inhaler for Covid-like symptoms. After performing a Medical Screening Examination, I estimate there is LOW risk for ACUTE CORONARY SYNDROME, PULMONARY EMBOLI, RESPIRATORY FAILURE, SEPSIS OR MENINGITIS, thus I consider the discharge disposition reasonable. I have reevaluated this patient multiple times and no significant life threatening changes are noted. The patient and I have discussed the diagnosis and risks, and we agree with discharging home with close follow-up. We also discussed returning to the Emergency Department immediately if new or worsening symptoms occur. We have discussed the symptoms which are most concerning (e.g., changing or worsening pain, trouble swallowing or breathing, neck stiffness, fever) that necessitate immediate return. - Vital Signs Vital signs: Temp Pulse Resp BP Pulse Ox 98.7 F 65 18 124/73 100 11/24/20 13:09 11/24/20 13:09 11/24/20 13:09 11/24/20 13:09 11/24/20 13:09 - Laboratory Results Result Diagrams: 11/24/20 02:35 11/24/20 02:35 Laboratory Results Interpreted: 11/24/20 11/24/20 02:35 02:35 WBC 10.9 H Hct 35.6 L Chloride 109 H Critical Laboratory Results Reviewed: No Critical Results - Radiology Results Critical Radiology Results Reviewed: No Critical Results - EKG Interpretation by Me EKG shows normal: Sinus rhythm Rate: Normal Rhythm: NSR Additional EKG results interpreted by me: 11/24/20 17:26 EKG HR 74, P axis 76, QRS axis 50, T axis 37. no st segment changes. No STEMI. ekg interpretation by ER supervising physician. Discharge - Discharge Clinical Impression: URI (upper respiratory infection), Person under investigation for COVID-19 Condition: Stable Disposition: HOME, SELF-CARE Instructions: COVID-19 Guidance for Persons Under Investigation, Upper Respiratory Illness ([facility]) Additional Instructions: You were swabbed today for Covid, you do need to self quarantine at home until results are known. Please wear your mask, social distance and wash her hands while you are home so you possibly do not get any when it is infected. Your EKG today was normal as well as your chest x-ray. Your rapid flu was negative Prescriptions: Prednisone [Deltasone 20 mg Tablet] 3 tab PO DAILY 5 Days #15 tablet Albuterol Sulfate [Proair HFA Inhalation Aerosol 8.5 gm MDI] 2 puff IH Q4H PRN #1 mdi PRN Reason: Azithromycin [Zithromax] 250 mg PO DAILY 5 Days #6 tablet Forms: Return to Work Referrals: MAUDE BOYCE MD [Primary Care Provider] - Follow up in 3-5 days
[2020-11-24 13:14] VITALS: BP 124/73
== END 2020-11-24 13:13 | disposition home or self-care (01) ==
LOC: ER 01:55
DX: J06.9 Acute upper respiratory infection, unspecified (principal); R06.02 Shortness of breath; R09.89 Other specified symptoms and signs involving the circulatory and respiratory systems; F17.200 Nicotine dependence, unspecified, uncomplicated; Z20.822 Contact with and (suspected) exposure to COVID-19; Z90.710 Acquired absence of both cervix and uterus
CPT/HCPCS: 93005; 99285; 36415; 87070; 82553; 87880; 82550; 85025; 0241U ×4; 80053; 84484; 71045; 93010; J3490; C9803